=== PATIENT | male | born 1985 | race Caucasian/White ===

== ENCOUNTER 2020-03-07 04:57 | Emergency (ER) | payer SELFPAY ==
[2020-03-07 04:58] VITALS: BP 135/82; PULSE 73; RESP 20; TEMP 36.9; O2SAT 100
--- NOTE | 2020-03-07 05:12 | ED.BACK ---
HPI - Back Pain/Injury General Chief Complaint: Back Pain/Injury Stated Complaint: back pain Time Seen by Provider: 03/07/20 05:12 Source: patient and EMS Mode of arrival: EMS Limitations: no limitations History of Present Illness HPI Narrative: Patient is a 34-year-old male with a history of substance abuse, currently taking Suboxone, who presents for evaluation of back pain. Patient reportedly has had a week long history of worsening lower back pain, greatest on the right side, worse with movement, patient does state he can feel the pain at rest. No midline pain. No recent falls or injury. Patient states that he noticed the pain after lifting a heavy bag. Patient is homeless and carries most of his belongings around. Patient denies any numbness around his bottom, no difficulty with bowel or bladder function. No numbness in his lower extremities. Patient denies fever or chills. No nausea or vomiting. Patient states he was seen 3 days ago at [facility] and diagnosed with disc herniation. Related Data Allergies Allergy/AdvReac Type Severity Reaction Status Date / Time No Known Allergies Allergy Verified 03/07/20 05:03 Review of Systems Review of Systems: Narrative: CONSTITUTIONAL: Denies fever CARDIOVASCULAR: Denies chest pain RESPIRATORY: Denies cough or dyspnea. GASTROINTESTINAL: Denies abdominal pain SKIN: Denies rash MUSCULOSKELETAL: Reports right-sided lower back pain NEUROLOGIC: Denies headache PMFSH Past Medical History Medical History Hypertension Social History Social History (Updated 03/07/20 @ 05:15 by Anya Garcia MD) Substance use: current Substance use type: heroin and opiates Gender identity (if verbalized by the patient): Male Exam Narrative: Exam Narrative: GENERAL: Awake, alert, conversant, tearful HEAD: Normocephalic, atraumatic. EYES: PERRLA and EOMI. ENT: Nares clear, no rhinorrhea or epistaxis. Mucous membranes moist. NECK: Supple. CHEST: No respiratory distress, breathing even and non labored HEART: Regular rate, sinus rhythm ABDOMEN:Non distended, non tender EXTREMITIES: Normal range of motion. Edema, mild erythema, mild warmth of the right hand. Abscess of the right forearm. Fluctuant. Approximately 2 cm. Thorax: No cervical midline tenderness. No thoracic midline tenderness. No lumbar midline tenderness. Positive right-sided paraspinal lumbar tenderness which reproduces pain. Positive right SI joint tenderness. Positive straight leg raise test bilaterally. SKIN: Warm, dry NEURO:No focal deficits. Alert and oriented x3. EOMs intact without nystagmus. No facial droop/asymmetry noted bilaterally. Grimace intact. Intact sensation in face. Hearing intact bilaterally. Shoulder shrug intact. Strength 5/5 bilateral upper extremities. Strength 5/5 bilateral lower extremities. Reflexes 2+ patellar. Course Vital Signs Vital signs: Vital Signs Temperature 36.9 C 03/07/20 04:58 Pulse Rate 73 03/07/20 04:58 Respiratory Rate 03/07/20 04:58 Blood Pressure 135/82 03/07/20 04:58 Pulse Oximetry 100 03/07/20 04:58 Temperature 36.9 C 03/07/20 04:58 Pulse Rate 66 03/07/20 06:49 Respiratory Rate 03/07/20 06:49 Blood Pressure 131/74 03/07/20 06:49 Pulse Oximetry 100 03/07/20 06:49 Procedures Abscess I/D upper extremity: Date of Incision: 03/07/20 Time of Incision: 07:21 Side (if applicable): right Local Anesthetic: lidocaine 1% Amount of anesthesia used (mL): 3 Technique: incised with #11 blade Amount of fluid expressed (mL): 5 Irrigation: Yes Packing used?: none I&D Results: Pus Complications: pain MDM - Back Pain/Injury MDM Narrative Medical decision making narrative: Patient is a 34-year-old male who presented for evaluation of back pain. It does seem quite chronic in nature and is reproducible.
[2020-03-07] MEDS: SODIUM CHLORIDE 0.9% IV 1,000 ML 999 ML IV CONT (05:27)
[2020-03-07] MEDS: diazePAM 5 MG TABLET PO (05:27)
[2020-03-07 05:44] LABS: Basophils Percent Auto 0.3 % (0.2-1.2); Eosinophils Absolute Auto 0.4 K/mm3 (0-0.3); Eosinophils Percent Auto 3.6 % (0-4.4); Hematocrit 40.6 % (42.0-52.0); Hemoglobin 13.4 g/dL (14.0-18.0); Immature Granulocyte Absolute 0.06 K/mm3 (0.00-0.031); Immature Granulocyte Percent A 0.6 % (0-0.5); Lymphocytes Absolute Auto 2.47 K/mm3 (0.9-3.2); Lymphocytes Percent Auto 24.7 % (18.3-44.2); Mean Corpuscular Hemoglobin 30.1 pg (26-34); Mean Corpuscular Volume 91.2 fl (80-100); Mean Platelet Volume 10.1 fl (7.4-10.4); Monocytes Percent Auto 10.3 % (2.6-8.5); Neutrophils Absolute Auto 6.1 K/mm3 (1.3-6.7); Neutrophils Percent Auto 60.5 % (45.5-73.1); Platelet Count Result 259 k/mm3 (150-375); Red Blood Count 4.45 M/mm3 (4.6-6.20); Red Cell Distribution Width 13.2 % (11.5-14.5)
[2020-03-07 06:03] LABS: Anion Gap 9.6 mmol/L (7-16); Blood Urea Nitrogen 8 mg/dL (9-20); CRP 4.1 mg/dL (<1.0); Calcium 8.5 mg/dL (8.4-10.2); Carbon Dioxide 26 mmol/L (22-30); Chloride 101 mmol/L (98-107); Estimated Glomerular Filt Rate > 60; Glucose 118 mg/dL (75-110); Potassium 3.6 mmol/L (3.4-5.0); Sodium 133 mmol/L (137-145)
[2020-03-07 06:40] LABS: HIV 1/2 Ab P24 Ag Result Negative (Negative)
[2020-03-07 06:49] VITALS: BP 131/74; PULSE 66; RESP 20; O2SAT 100
[2020-03-07 07:36] LABS: Erythrocyte Sedimentation Rate 21 mm/hr (0-20)
[2020-03-07 07:43] VITALS: BP 119/72
== END 2020-03-07 07:45 | disposition home or self-care (01) ==
PROVIDERS: Emergency Provider Emergency Medicine
DX: S39.012A Strain of muscle, fascia and tendon of lower back, initial encounter (principal); L03.113 Cellulitis of right upper limb; L02.511 Cutaneous abscess of right hand; I10 Essential (primary) hypertension; X58.XXXA Exposure to other specified factors, initial encounter
CPT/HCPCS: 10060; 36415; 80048; 85025; 85652; 86140; 86703; 96361; 96365; 99284; A9270; G0432; J0131; J7030

== ENCOUNTER 2020-03-28 10:59 | Emergency (ER) | payer SELFPAY ==
[2020-03-28 11:05] VITALS: BP 143/90; PULSE 73; RESP 19; TEMP 36.6; O2SAT 100
--- NOTE | 2020-03-28 12:46 | ED.BACK ---
HPI - Back Pain/Injury General Chief Complaint: Back Pain/Injury <Aquiles Saucedo PA-C - Last Filed: 03/28/20 12:50> Stated Complaint: wound, back pain <Aquiles Saucedo PA-C - Last Filed: 03/28/20 12:50> Time Seen by Provider: 03/28/20 11:04 <Aquiles Saucedo PA-C - Last Filed: 03/28/20 12:50> Source: patient <Aquiles Saucedo PA-C - Last Filed: 03/28/20 12:50> Mode of arrival: ambulatory <Aquiles Saucedo PA-C - Last Filed: 03/28/20 12:50> Limitations: no limitations <Aquiles Saucedo PA-C - Last Filed: 03/28/20 12:50> History of Present Illness HPI Narrative: Patient is 34-year-old male who presents for wound check to the right forearm patient had multiple abscesses I&D then closed a [facility] 1 of the wounds opened was discharged today from the hospital with paperwork that suggest he left AMA. Patient does not know who his follow-up was with but does have papers with prescriptions included for antibiotics which she has not filled yet. Patient notes that the wound opened in the hospital and he decided to leave it open and wanted to have the wound reevaluated and closed. Patient has not facilitated follow-up with the specialist. Patient on arrival notes mild aching pain to the arm worse with activity and movement <Aquiles Saucedo PA-C - Last Filed: 03/28/20 12:50> Related Data Allergies/Adverse Reactions: Allergies Allergy/AdvReac Type Severity Reaction Status Date / Time No Known Allergies Allergy Verified 03/28/20 11:21 <Aquiles Saucedo PA-C - Last Filed: 03/28/20 12:50> Review of Systems Review of Systems: All systems reviewed & are unremarkable except as noted in HPI and below <Aquiles Saucedo PA-C - Last Filed: 03/28/20 12:50> [facility] Past Medical History Medical History: Medical History Hypertension <PÉREZ Gutierrez Last Filed: 03/28/20 12:50> Social History Social History: Social History Substance use: current Substance use type: heroin and opiates Gender identity (if verbalized by the patient): Male <Aquiles Saucedo PA-C - Last Filed: 03/28/20 12:50> Exam Narrative: Exam Narrative: GENERAL: Well-appearing, well-nourished, and in no acute distress. HEAD: Normocephalic, atraumatic. EYES: PERRLA and EOMI. ENT: Nares clear, no rhinorrhea or epistaxis. Mucous membranes moist. CHEST: Clear to auscultation. No respiratory distress. No wheezes rales or rhonchi HEART: Regular rate and rhythm. No murmur heard. Normal peripheral pulses. EXTREMITIES: Normal range of motion. No edema. SKIN: Warm, dry, no rash. Patient with wound measuring 3 cm to the right proximal forearm dorsal surface with half of the wound open with central opening no purulent drainage no erythema. Remainder of wound is closed NEURO: No focal deficits. Alert and oriented x3. Neurovascularly intact PSYCH: Normal mood and affect. <Aquiles Saucedo PA-C - Last Filed: 03/28/20 12:50> Course Course Emergency Course: Patient in the room in no distress aware of case findings treatment plan and diagnosis given a dose of IV antibiotic in the emergency department and given alternative surgeons to follow with but advised to follow with the surgeon that performed the surgery as this is best advised and to fill his medications noting that he will was also given discount prescription card and other resources. <Aquiles Saucedo PA-C - Last Filed: 03/28/20 12:50> Vital Signs Vital signs: Vital Signs Temperature 97.9 F 03/28/20 11:05 Pulse Rate 73 03/28/20 11:05 Respiratory Rate 19 03/28/20 11:05 Blood Pressure 143/90 H 03/28/20 11:05 Pulse Oximetry 100 03/28/20 11:05 Temperature 97.9 F 03/28/20 11:05 Pulse Rate 73 03/28/20 11:05 Respiratory Rate 19 03/28/20 11:05 Blood Pressure 143/90 H 03/28/20
[2020-03-28] MEDS: ceFAZolin 2 GM/D5W 50 ML 2 GM/50 ML BAG IVPB (12:53)
== END 2020-03-28 14:04 | disposition home or self-care (01) ==
PROVIDERS: Emergency Provider Emergency Medicine
DX: T81.89XA Other complications of procedures, not elsewhere classified, initial encounter (principal)
CPT/HCPCS: 96365; 99284; J0690

== ENCOUNTER 2022-03-17 04:04 | Emergency (ER) | payer OTHER, SELFPAY ==
[2022-03-17] VITALS (19 sets, daily range): BP systolic 101–132; BP diastolic 62–76; PULSE 64–115; RESP 15–20; TEMP 37.7–39.2; O2SAT 97–100
--- NOTE | ~2022-03-17 | CT_ITS ---
EXAMINATION: CT diagnostic chest w con DATE: 03/17/2022 10:44 INDICATION: IV drug use. Possible lung opacities, endocarditis TECHNIQUE: Computed tomography (CT) of the chest was performed with 75 CC Omnipaque 350 intravenous c ontrast. Automated exposure control and iterative reconstruction technique were employed. Exam dose: 144.51 mGy-cm total exam DLP. COMPARISON: 03/17/2022 portable AP chest FINDINGS: Right posterolateral 12 mm focal infiltrate. Approximately 3 cm rounded area of density and infiltrate which consists of a central 17 mm rounded m ass with minimal cavitation and prominent surrounding infiltrate. 3.6 mm cavitating nodule in the right upper lobe (image 44). Occasional additional small pulmonary nodular densities are noted. Septic emboli should be considered . There is minimal bilateral lower lobe dependent atelectasis. Normal heart size. No pericardial effusion. No pleural effusion. No thoracic aortic aneurysm. There is mild right hilar and mediastinal probable reactive lymphadenopathy. IMPRESSION: Scattered bilateral pulmonary opacities, the largest situated on the right upper lobe, w ith suggestion of minimal cavitation, surrounding infiltrate. Additional 3.6 mm small cavitating nodu le in the right upper lobe is noted. Consider multiple septic pulmonary emboli in this patient with h istory of intravenous drug abuse. Reviewed, dictated and finalized at [facility]. Reviewed, dictated and finalized at [facility]. IMPRESSION: Scattered bilateral pulmonary opacities, the largest situated on t he right upper lobe, with suggestion of minimal cavitation, surrounding infiltr ate. Additional 3.6 mm small cavitating nodule in the right upper lobe is noted . Consider multiple septic pulmonary emboli in this patient with history of int ravenous drug abuse.
--- NOTE | ~2022-03-17 | CT_ITS ---
EXAMINATION: CT abdomen pelvis w con DATE: 03/17/2022 08:36 INDICATION: Generalized abdominal pain, nausea, vomiting for 3 days. Fever. TECHNIQUE: Computed tomography (CT) of the abdomen and pelvis was performed with 100 CC Omnipaque 350 intravenous contrast. Automated exposure control and iterative reconstruction technique were employe d. Exam dose: 367.98 mGy-cm total exam DLP. COMPARISON: None. FINDINGS: Approximately 3.7 mm small pulmonary nodule or benign fissural node along the lateral aspec t of the greater fissure on the right (series 4 image 4). 4.5 mm probable benign fissural node along the greater fissure (image 5). 7.5 mm benign fissural node at the left greater fissure (image 2). Approximately 2.5 mm and 3 mm peripheral middle lobe opacities (images 1 and 4). Mild bilateral dependent lower lobe atelectasis. Normal heart size. No pericardial or pleural effusion. The liver, gallbladder, bile ducts, pancreas and pancreatic duct are unremarkable. The spleen measure s within upper limits of normal size, with 13 cm vertical dimension.. Normal morphology of the adrenal glands. No renal mass lesion or urinary tract calculus or hydroureteronephrosis is noted. The urinary bladder is unremarkable. Normal caliber of the abdominal aorta. No intraperitoneal or retroperitoneal or pelvic mass lesion or adenopathy or ascites. Normal appendix. No bowel obstruction or intraperitoneal free air. Small fat-containing umbilical hernia. Included skeletal structures are unremarkable. IMPRESSION: Spleen measures within upper limits of normal size at approximately 13 cm vertical dimens ion. No significant abnormality of the abdomen or pelvis Probable benign bilateral greater fissure fissural nodes, minimal lower lung atelectasis Reviewed, dictated and finalized at [facility]. Reviewed, dictated and finalized at [facility]. IMPRESSION: Spleen measures within upper limits of normal size at approximately 13 cm vertical dimension. No significant abnormality of the abdomen or pelvis Probable benign bilateral greater fissure fissural nodes, minimal lower lung at electasis
--- NOTE | ~2022-03-17 | XR_ITS ---
EXAMINATION: XR chest 1V portable Exam Date/Time: 03/17/2022 5:55 CDT HISTORY: Fever and cough Comparison: CT chest performed subsequently, already reported and available for comparison at the [facility] this radiograph was read. RESULT: Lines, tubes, and devices: None. Lungs and pleura: 2 cm cavitary nodule in the right upper lung, possibly with surrounding groundglas s opacity. Lungs otherwise clear. Cardiomediastinal silhouette: Stable. Other: No acute osseous or upper abdominal finding. IMPRESSION: Right upper lobe cavitary lesion. Additional pulmonary nodules detected by the subsequent CT are not visible radiographically. Reviewed, dictated and finalized at [facility].
--- NOTE | 2022-03-17 04:52 | ECG_ITS ---
Measurements Intervals [place] Rate: 86 P: 60 DC: 133 QRS: 48 QRSD: 90 T: 53 QT: 385 QTc: 461 Interpretive Statements SINUS RHYTHM NORMAL ELECTROCARDIOGRAM NO PREVIOUS ECG AVAILABLE FOR COMPARISON Electronically Signed On 03-17-2022 7:24:29 CDT by Sanchez Baldwin M.D.
[2022-03-17 05:42] LABS: Basophils Percent Auto 0.6 % (0.2-1.2); Hematocrit 43.2 % (42.0-52.0); Hemoglobin 14.1 g/dL (14.0-18.0); Immature Granulocyte Absolute 0.04 K/mm3 (0.00-0.031); Immature Granulocyte Percent A 0.6 % (0-0.5); Lymphocytes Absolute Auto 0.57 K/mm3 (0.9-3.2); Lymphocytes Percent Auto 8.1 % (18.3-44.2); Mean Corpuscular HGB Conc 32.6 g/dl (32-36); Mean Corpuscular Hemoglobin 27.4 pg (26-34); Mean Platelet Volume 10.8 fl (7.4-10.4); Monocytes Absolute Auto 0.4 K/mm3 (0.1-0.6); Monocytes Percent Auto 5.5 % (2.6-8.5); Neutrophils Percent Auto 85.2 % (45.5-73.1); Platelet Count Result 133 k/mm3 (150-375); Red Blood Count 5.14 M/mm3 (4.6-6.20); White Blood Count 7.1 K/mm3 (4.5-10.0)
[2022-03-17 05:51] LABS: INR 1.2; Prothrombin Time 14.8 Seconds (11.1-14.7)
[2022-03-17 05:52] LABS: Partial Thromboplastin Time 32.3 SECONDS (22.3-36.8)
[2022-03-17 06:49] LABS: Lactic Acid Reflex 2.4 mmol/L (0.7-2.0)
[2022-03-17 06:52] LABS: Alanine Aminotransferase 48 U/L (6-50); Albumin Level 4.4 g/dL (3.5-5.1); Alkaline Phosphatase 97 U/L (38-126); Anion Gap 14 mmol/L (8-16); Aspartate Amino Transferase 41 U/L (17-59); Bilirubin,Total 1.7 mg/dL (0.2-1.3); Blood Urea Nitrogen 12 mg/dL (9-20); Calcium 8.8 mg/dL (8.4-10.2); Carbon Dioxide 24 mmol/L (22-30); Chloride 92 mmol/L (98-107); Creatine Kinase 26 U/L (55-170); Estimated CRCL calculation 130 ml/min; Estimated Glomerular Filt Rate > 60; Glucose 115 mg/dL (65-110); Lipase 23 U/L (23-300); Potassium 3.9 mmol/L (3.4-5.0); Sodium 130 mmol/L (137-145)
[2022-03-17 07:04] LABS: CRP 23.3 mg/dL (<1.0)
[2022-03-17 07:12] LABS: SARS-CoV-2 RNA PCR Negative
--- NOTE | 2022-03-17 07:55 | ED.GENADULT ---
HPI - General Adult General Chief complaint: Fever <Crispin Myrick MD - Last Filed: 03/17/22 08:06> Stated complaint: fever, N/V, weakness <Crispin Myrick MD - Last Filed: 03/17/22 08:06> Time Seen by Provider: 03/17/22 04:52 <Crispin Myrick MD - Last Filed: 03/17/22 08:06> History of Present Illness HPI narrative: This is a 36-year-old male with a history of IV drug abuse presented the ED with fever and abdominal pain for 3 or 4 days. Patient describes the abdominal pain is a sharp diffuse pain that is 10/10 intensity and constant and slowly getting worse. He has never experienced pain like this before. There are no excess relieving factors. It is associated with nausea and vomiting. He is also complaining of a productive cough. Patient denies chest pain, diarrhea, urinary symptoms. He is vaccinated against COVID-19. Patient last used IV drugs 3 hours before his arrival. Patient has a history of mitral valve prolapse. <Crispin Myrick MD - Last Filed: 03/17/22 08:06> Related Data Allergies/adverse reactions: Allergies Allergy/AdvReac Type Severity Reaction Status Date / Time turkey Allergy Hives Verified 03/17/22 04:19 <Crispin Myrick MD - Last Filed: 03/17/22 08:06> Review of Systems Review of Systems: CONSTITUTIONAL: Denies night sweats. EYES: No eye pain ENT: Denies rhinorrhea CARDIOVASCULAR: Denies palpitations RESPIRATORY: Denies hemoptysis GASTROINTESTINAL: Denies hematemesis GENITOURINARY: Denies hematuria. SKIN: Denies rash MUSCULOSKELETAL: Denies myalgia. NEUROLOGIC: Denies weakness. PSYCHIATRIC: Denies delusions <Crispin Myrick MD - Last Filed: 03/17/22 08:06> PMF Past Medical History Medical History: Medical History Hypertension IV drug abuse Mitral valve prolapse <Crispin Myrick MD - Last Filed: 03/17/22 08:06> Social History Social History: Social History Substance use: current Substance use type: heroin and opiates Gender identity (if verbalized by the patient): Male <Crispin Myrick MD - Last Filed: 03/17/22 08:06> Exam Narrative: APPEARANCE: Patient is laying in bed. He appears uncomfortable. Head atraumatic. EYES: PERRLA/EOMI, NOSE: Normal no drainage NECK: Supple, Trachea midline RESPIRATORY: CTAB, No increased work of breathing. CARDIOVASCULAR: S1S2 appreciated no murmurs appreciated ABDOMINAL: Abdomen is soft although the patient is repeating diffuse tenderness. There is no guarding or rebound. exam is unremarkable MUSCULOSKELETAl: No obvious deformities NEURO: Alert. Moving 4/4 extremities SKIN:: Warm, dry. Normal color PSYCHIATRIC: Normal affect <Crispin Myrick MD - Last Filed: 03/17/22 08:06> Course Reevaluation(s) Reevaluation #1: Pt eval'ed by myself, now ambulating, still feels horrible. I did review the CXR and noted what appeared to be some opacities concerning to me for possible septic emboli; therefore obtained CT Chest which was highly suspicious given his history of IVDU. He is already on broad spectrum abx, d/w Dr Spence CT surgery at [facility], then the admitting hospitalist Dr. Lira. Plan explained to patient. <Meche Devlin MD - Last Filed: 03/17/22 14:32> Vital Signs Vital signs: Vital Signs Temperature 102.6 F H 03/17/22 04:15 Pulse Rate 115 H 03/17/22 04:15 Respiratory Rate 18 03/17/22 04:15 Blood Pressure 116/72 03/17/22 04:15 Pulse Oximetry 100 03/17/22 04:15 Oxygen Delivery Room Air 03/17/22 04:15 Temperature 99.9 F H 03/17/22 06:00 Pulse Rate 81 03/17/22 09:00 Respiratory Rate 16 03/17/22 09:00 Blood Pressure 101/69 03/17/22 09:00 Pulse Oximetry 100 03/17/22 09:01 Oxygen Delivery Room Air 03/17/22 04:15 <Crispin Myrick MD - Last Filed: 03/17/22 08:06> Vital Signs Temperature 102.6 F H
[2022-03-17 08:07] LABS: Appearance Urine Clear (Clear); Bilirubin Urine Negative (Negative); Blood Urine Negative (Negative); Color Urine Yellow (Yellow); Glucose Urine UA Negative (Negative); Ketones Urine Negative (Negative); Leukocyte Esterase Ur Trace LEU/UL (Negative); Nitrate Urine Negative (Negative); Protein Urine Negative (Negative); Urobilinogen Urine 0.2 mg/dL (<2.0)
[2022-03-17 08:12] LABS: Mucus Urine Rare /lpf; Squamous Epithelial Cell Urine Rare /hpf (Few)
[2022-03-17 08:13] LABS: Add Urine Microscopic? YES
[2022-03-17 08:18] LABS: HIV 1/2 Ab P24 Ag Result Negative (Negative)
[2022-03-17 08:42] LABS: Reflex Lactic Acid Yes or No Add Lactic
--- NOTE | 2022-03-17 09:27 | PC.NURSE ---
Patient received full 2.4L bolus of IV fluids
[2022-03-17 10:39] LABS: Lactic Acid 1.6 mmol/L (0.7-2.0)
[2022-03-17] MEDS: MORPHINE SULFATE (*CRX) 4 MG/ML INJ IV PUSH (13:46)
[2022-03-17] MEDS: fentaNYL CITRATE INJ (*CRX) 100 MCG/2 ML VIAL 50 MCG IV PUSH (15:40)
== END 2022-03-17 16:55 | disposition short-term general hospital (02) ==
PROVIDERS: Emergency Medicine; Emergency Provider Emergency Medicine
DX: R50.9 Fever, unspecified (principal); Z20.822 Contact with and (suspected) exposure to COVID-19; I34.1 Nonrheumatic mitral (valve) prolapse; I10 Essential (primary) hypertension
CPT/HCPCS: 36415; 71045; 71260; 74177; 80053; 81001; 82550; 83605; 83690; 85025; 85610; 85730; 86140; 86703; 87040; 87077; 87186; 93005; 96365; 96367; 96375; 99285; C9803; G0432; J0131; J0692; J2270; J3010; J3370; J7030; Q9967; U0003; U0005

== ENCOUNTER 2023-11-10 00:23 | Observation (INO) | payer OTHER, SELFPAY ==
[2023-11-10] VITALS (13 sets, daily range): BP systolic 118–151; BP diastolic 76–98; PULSE 60–83; RESP 13–20; TEMP 36.4–36.7; O2SAT 96–100; BMI 20.9
--- NOTE | ~2023-11-10 | CT_ITS ---
EXAMINATION: CTA brain carotid DATE: 11/10/2023 02:04 INDICATION: Dizziness. Slurred speech. TECHNIQUE: Computed tomographic angiography (CTA) of the head was performed with 100 mL Omnipaque-350 intravenous contrast. CTA of the neck was performed with intravenous contrast. Automated exposure co ntrol and iterative reconstruction technique were employed. The dose-length product was 1099.80 mGy-c m. Maximum intensity projection and volume rendered 3D-reconstructions were created by the technologi st on a separate workstation. COMPARISON: Head CT 11/10/2023 FINDINGS: HEAD CTA: There is no intracranial hemorrhage, acute infarction, or abnormal intracranial mass lesion . The ventricles are normal in size. There are old blowout fractures of the medial nice of the orbit s. There is mild mucosal thickening in the paranasal sinuses. The mastoid air cells are normal. Left vertebral artery is dominant. There is no significant stenosis of basilar artery or the posterior cer ebral arteries. There is no significant stenosis of the intracranial internal carotid arteries or ant erior or middle cerebral arteries. Anterior communicating artery is normal. The posterior communicati ng arteries are normal. There is no aneurysm. NECK CTA: There is mild emphysema. There are no pathologically enlarged lymph nodes. There is no sign ificant stenosis of the vertebral arteries. There is plaque in the proximal internal carotid arteries . There is 0% stenosis of the proximal right internal carotid artery relative to normal distal artery lumen diameter (NASCET criteria). There is 0% stenosis of the proximal left internal carotid artery relative to normal distal artery lumen diameter. Mediastinum and wires are noted. There is mild cervi iain spondylosis. IMPRESSION: 1. Normal brain. 2. No aneurysm or significant intracranial arterial stenosis. 3. 0% stenosis of the proximal internal carotid arteries relative to normal distal artery lumen diame ters (NASCET criteria). Reviewed, dictated and finalized at location E. IMPRESSION: 1. Normal brain. 2. No aneurysm or significant intracranial arterial stenosis. 3. 0% stenosis of the proximal internal carotid arteries relative to normal dis cain artery lumen diameters (NASCET criteria).
--- NOTE | ~2023-11-10 | XR_ITS ---
XR chest 1V portable DATE: 11/10/2023 02:09 INDICATION: Cerebrovascular accident TECHNIQUE: Portable upright AP views on 11/10/2023 at 0201 hours COMPARISON: 03/17/2022 portable AP chest 03/17/2022 CT chest FINDINGS: Status post sternotomy. Normal heart size. No hilar or mediastinal enlargement. No pulmonary infiltrate or consolidation, pleural effusion or pulmonary vascular congestion or pneumo thorax is detected. IMPRESSION: No active cardiopulmonary disease Reviewed, dictated and finalized at location A.
--- NOTE | ~2023-11-10 | CT_ITS ---
EXAMINATION: CT brain wo con DATE: 11/10/2023 01:02 INDICATION: Dizziness. Slurred speech. Right-sided diminished sensation. TECHNIQUE: Computed tomography (CT) of the head was performed without intravenous contrast. The mA wa s adjusted according to patient size. Iterative reconstruction technique was employed. Exam dose: 83 2.33 mGy-cm total exam DLP. COMPARISON: None FINDINGS: No intracranial mass lesion or hemorrhage or cerebrovascular accident is detected. No midli ne shift or mass effect effect. Normal ventricular size. Normal william-white matter differentiation. No subdural or epidural hematoma. The orbits are unremarkable. No skull fracture or bone destruction. The mastoid air cells and included paranasal sinuses are unrem arkable. IMPRESSION: No significant abnormality Reviewed, dictated and finalized at Location A. Reviewed, dictated and finalized at location A. IMPRESSION: No significant abnormality
[2023-11-10 00:43] LABS: Glucose Point of Care 84 mg/dl (65-105)
--- NOTE | 2023-11-10 00:48 | ED.DIZZY ---
HPI - Dizziness General Chief Complaint: Dizziness Stated Complaint: dizziness, bilateral hand/feet swelling Time Seen by Provider: 11/10/23 00:45 Source: patient Mode of arrival: ambulatory Limitations: no limitations History of Present Illness HPI Narrative: Patient presents with concern for stroke by triage given he is complaining of dizziness and right arm numbness with slurred speech. Last known well 10:30pm in regards to when the dizziness and left arm numbness started but he also states he has been feeling unwell for the past several days otherwise. Related Data Allergies Allergy/AdvReac Type Severity Reaction Status Date / Time turkey Allergy Hives Verified 11/10/23 01:07 [facility] Past Medical History Medical History (Updated 11/10/23 @ 08:36 by Kylie Whyte MD) History of endocarditis Hypertension IV drug abuse Mitral valve prolapse Surgical History Surgical History (Updated 11/10/23 @ 08:05 by Kylie Whyte MD) History of heart valve repair 2022 Social History Social History Substance use: current Substance use type: heroin and opiates Living arrangements: homeless Gender identity (if verbalized by the patient): Male Exam Narrative: GENERAL: well-nourished but appears unwell HEAD: Normocephalic, atraumatic. EYES: Non injected, non icteric. Horizontal EOMI. Peripheral leal intact. No gaze palsy. ENT: Nares clear, no rhinorrhea or epistaxis. NECK: Supple. CHEST: Clear to auscultation. No respiratory distress. HEART: Regular rate and rhythm. ABDOMEN: Soft, nondistended. EXTREMITIES: Normal range of motion. No edema. SKIN: Warm, dry. Multiple track boland across right forearm. NEURO:Alert but gets month and age incorrect ( states it is November and that he is 36 years old). no ataxia. Sensation is diminished in the right upper extremity compared to the left. No drift in any extremity x4. Does speak with slurred speech but does not exhibit dysarthria. No facial palsy. Facial movements intact and symmetric x3 (smile, closed eyes, furrowed brow). PSYCH: Normal mood and affect. Course Vital Signs Vital signs: Vital Signs Temperature 97.9 F 11/10/23 00:26 Pulse Rate 74 11/10/23 00:26 Respiratory Rate 16 11/10/23 00:26 Blood Pressure 151/89 H 11/10/23 00:26 Pulse Oximetry 99 11/10/23 00:26 Oxygen Delivery Room Air 11/10/23 00:26 Temperature 97.9 F 11/10/23 00:26 Pulse Rate 60 11/10/23 05:50 Respiratory Rate 20 11/10/23 05:50 Blood Pressure 134/87 11/10/23 05:50 Pulse Oximetry 100 11/10/23 05:50 Oxygen Delivery Room Air 11/10/23 00:26 MDM - Dizziness MDM Narrative Medical decision making narrative: This is a 38 year old male who presents to the emergency department with concern for possible stroke. Last known well is 10:30pm. The patient is protecting their airway which is patent. An IV is established by nursing staff and blood work sent to the lab for evaluation. An EKG will be performed. Accu-Chek was without marked hypoglycemia or hyperglycemia. NIHSS was evaluated per below. The patient was transported immediately to CT scan per stroke protocol for evaluation of acute intracranial bleed. NIHSS Level Of consciousness: 0 Month and age: 2 Follows commands: 0 Gaze palsy: 0 Visual leal: 0 Facial palsy: 0 Left arm motor drift: 0 Right arm motor drift: 0 Left leg motor drift: 0 Right leg motor drift: 0 Limb ataxia: 0 Sensation: 1 Aphasia: 1 Dysarthria: 0 Extinction: 0 Total: 4 CT per stroke protocol as below. Chart review performed which demonstrates: Hx of endocarditis. Patient has comorbidities that add complexity to management. Namely, He has a history of IV drug use complicated by endocarditis requiring heart valve repair last year. This IV drug use also predisposes him to aneurysm, brain abscesses, intraparenchymal hemorrhage
[2023-11-10 01:40] LABS: Basophils Percent Auto 0.5 % (0.2-1.2); Eosinophils Absolute Auto 0.2 K/mm3 (0-0.3); Eosinophils Percent Auto 3.1 % (0-4.4); Hematocrit 40.2 % (42.0-52.0); Hemoglobin 13.1 g/dL (14.0-18.0); Immature Granulocyte Absolute 0.01 K/mm3 (0.00-0.031); Immature Granulocyte Percent A 0.2 % (0-0.5); Lymphocytes Absolute Auto 2.38 K/mm3 (0.9-3.2); Lymphocytes Percent Auto 42.9 % (18.3-44.2); Mean Corpuscular HGB Conc 32.6 g/dl (32-36); Mean Corpuscular Hemoglobin 28.1 pg (26-34); Mean Corpuscular Volume 86.1 fl (80-100); Monocytes Absolute Auto 0.2 K/mm3 (0.1-0.6); Monocytes Percent Auto 3.8 % (2.6-8.5); Neutrophils Absolute Auto 2.8 K/mm3 (1.3-6.7); Neutrophils Percent Auto 49.5 % (45.5-73.1); Platelet Count Result 156 k/mm3 (150-375); Red Blood Count 4.67 M/mm3 (4.6-6.20); Red Cell Distribution Width 15.7 % (11.5-14.5); White Blood Count 5.6 K/mm3 (4.5-10.0)
[2023-11-10 01:52] LABS: Ethanol < 10 mg/dL (<10)
[2023-11-10 02:02] LABS: Estimated Glomerular Filt Rate > 60
[2023-11-10 02:08] LABS: Alanine Aminotransferase 14 U/L (6-50); Albumin Level 4.2 g/dL (3.5-5.1); Alkaline Phosphatase 107 U/L (38-126); Anion Gap 6 mmol/L (4-12); Aspartate Amino Transferase 24 U/L (17-59); Bilirubin,Total 1.1 mg/dL (0.2-1.3); Blood Urea Nitrogen 5 mg/dL (9-20); Calcium 9.1 mg/dL (8.4-10.2); Carbon Dioxide 27 mmol/L (22-30); Chloride 103 mmol/L (98-107); Estimated Glomerular Filt Rate > 60; Glucose 93 mg/dL (65-110); Potassium 3.8 mmol/L (3.4-5.0); Sodium 136 mmol/L (137-145)
[2023-11-10 02:20] LABS: Troponin I < 0.012 ng/mL (0.000-0.034)
[2023-11-10 05:04] LABS: Appearance Urine Clear (Clear); Bilirubin Urine Negative (Negative); Blood Urine Negative (Negative); Color Urine Yellow (Yellow); Glucose Urine UA Negative (Negative); Ketones Urine Negative (Negative); Leukocyte Esterase Ur Negative LEU/UL (Negative); Nitrate Urine Negative (Negative); Protein Urine Negative (Negative); pH Urine 6.5 (5.0-9.0)
[2023-11-10 05:05] LABS: Specific Grav Ur 1.038 (1.001-1.035)
[2023-11-10 05:21] LABS: Barbiturate Screen Urine Negative (Negative); Benzodiazepines Screen Urine Negative (Negative)
[2023-11-10 05:29] LABS: Cannabinoid Screen Urine Positive (Negative); Cocaine Screen Urine Negative (Negative); Methadone Screen Urine Negative (Negative); Opiate Screen Urine Negative (Negative); Phencyclidine Screen Urine Negative (Negative)
[2023-11-10 05:50] LABS: Amphetamine Screen Urine Positive (Negative)
[2023-11-10 06:42] LABS: Add Urine Microscopic? NO
[2023-11-10] MEDS: ACETAMINOPHEN 500 MG TABLET 1000 MG PO (08:32)
[2023-11-10] MEDS: ONDANSETRON INJ 4 MG/2 ML VIAL IV PUSH (08:33)
[2023-11-10 08:50] LABS: Influenza A QL RT-PCR Negative (Negative); Influenza B QL RT-PCR Negative (Negative); SARS-CoV-2 RNA PCR Negative (Negative)
[2023-11-10] MEDS: LORazepam (*CRX) 0.5 MG TABLET PO ×2 (09:58→13:07)
--- NOTE | 2023-11-10 10:26 | WPDNEURCNPN ---
Assessment and Plan Assessment and plan (1) Right arm numbness: Code(s): R20.0 - Anesthesia of skin Status: Acute (2) Dizziness: Code(s): R42 - Dizziness and giddiness Status: Acute (3) Amphetamine use: Code(s): F15.90 - Other stimulant use, unspecified, uncomplicated Status: Acute (4) History of endocarditis: Code(s): Z86.79 - Personal history of other diseases of the circulatory system Status: Acute Plan Sotero Ruby is a 38 year old male with a history of IV drug use, endocarditis, mitral valve prolapse presenting due to dizziness, right upper extremity numbness, and slurred speech. Concern for possible ischemic stroke. His risk factors for stroke include IV drug use (positive for amphetamines), and also history of endocarditis. - MRI brain with and without contrast - Surface echocardiogram with bubble study, EKG - Check LDL and HgbA1c - Will hold off on antiplatelet until MRI has been obtained Consult date: 11/10/23 Reason for consult: Concern for stroke HPI: Sotero Ruby is a 38 year old male with a history of IV drug use, endocarditis, mitral valve prolapse presenting due to dizziness, right upper extremity numbness, and slurred speech. Patient reports generally not feeling well for the past few days. His LKW was around 1030PM last night (11/08). Patient presented around midnight for complaints of dizziness, numbness of the right arm and slurred speech. In the ED his blood pressure ranged from 134-251 systolic. His NIH score was 4 due to him stating incorrect age/month, reduced sensation in the RUE, and slurred speech. CT head did not show any acute process. CTA brain/carotid done with preliminary read as negative for any large vessel occlusion. The ER physician called me around 0800 today for consult. She did not feel that patient was a candidate for tPA due to concerns for possible endocarditis and potential risk of hemorrhage especially with his underlying drug use. His UDS was positive for amphetamines and cannabinoids. Patient this morning reporting improvement of RUE numbness. He reports generalized weakness and overall not feeling well. Per beside RN, patient did not receive methadone doses for the past few days, which could be contributing to his symptoms. . Review of Systems Review of Systems: All systems reviewed & are unremarkable except as noted in HPI and below PMFSH Past Medical History Medical History History of endocarditis Hypertension IV drug abuse Mitral valve prolapse Surgical History Surgical History History of heart valve repair 2022 Social History Social History Smoking packs per day: 0.5 Smoking cigarettes per day: 10.0 Smoking status: Heavy tobacco smoker Second hand tobacco smoke exposure: Yes Alcohol intake: former Drinks per week: 0 Substance use: current Substance use type: marijuana, amphetamines, IV drugs and methamphetamine Other substance usage details: fentanyl 2x day 2-3 pills, shoots up fentanyl and smokes meth 1x week Do You Feel Safe in your Home?: Yes Lack of Transportation: YES Lack of Food: Often True Current Housing: I Do Not Have Housing Concerned About Future Housing: YES Difficulty Paying Gas/Electric Bills: No Difficulty Paying for Meds: YES Currently Unemployed: No Education: Grade School Difficulty w/ Childcare or Family Care: No Living arrangements: homeless Gender identity (if verbalized by the patient): Male Spiritual care concerns: Yes Meds Home Medications and Allergies Home Medications Medication Instructions Recorded Confirmed Type sulfamethoxazole 800 1 tablet PO Q12H 10 days #20 tabs 03/07/20 11/10/23 Rx mg-trimethoprim 160 mg tablet (Bactrim DS) methadone 40 mg soluble tablet 110 m
--- NOTE | 2023-11-10 10:33 | ECG_ITS ---
Measurements Intervals [place] Rate: 60 P: 56 [place]: 154 QRS: 66 QRSD: 90 T: 56 QT: 449 QTc: 451 Interpretive Statements SINUS RHYTHM BASELINE ARTIFACT- V1-V2 NORMAL ECG COMPARED TO ECG 03/17/2022 06:29:52 NO SIGNIFICANT CHANGES Electronically Signed On 11-10-2023 11:03:44 CDT by Moe Gonzalez D.O.
[2023-11-10] MEDS: cloNIDine HCL 0.1 MG TABLET PO (13:49)
[2023-11-10] MEDS: SODIUM CHLORIDE 0.9% IV 1,000 ML 100 ML IV CONT (15:03)
--- NOTE | 2023-11-10 15:21 | PM.IMHP ---
H&P: HPI History of Present Illness Date/Time: 11/10/23 14:15 Chief Complaint: Dizziness, right sided numbness, and slurred speech. Narrative: This is a 38-year-old male with history of IV drug use (fentanyl and amphetamines), endocarditis requiring heart valve repair, and mitral valve prolapse who presented to the emergency department for evaluation of dizziness, right arm numbness, and slurred speech. The patient provides the following history. He has not been feeling well for several days but was in his usual state of health when he went to bed at 22:30 last night. At around midnight he started to feel dizzy and noticed numbness and tingling in the right arm associated with slurred speech. He presented to the ED shortly thereafter at which time he had an NIH stroke scale of 4. Brain CT did not show any acute findings. ED physician did not feel he would be a candidate for tPA with concerns for possible endocarditis given his history and potential risk for hemorrhage given his underlying drug use. He is being admitted in this setting for further workup. Of note the patient reports that he takes methadone daily and he is trying to taper off of fentanyl. He reportedly takes 110 mg of methadone daily but that cannot be confirmed at this time. He is having some mild withdrawal symptoms, mainly cravings and sweats at this time. He denies fever, cold and flu symptoms, visual changes, facial droop, chest pain, palpitations, shortness of breath, and vomiting. Review of Systems Review of Systems: Twelve systems were reviewed and are negative except for as per HPI. FORMERLY [facility] Past Medical History Medical History History of endocarditis Hypertension IV drug abuse Mitral valve prolapse Surgical History Surgical History History of heart valve repair 2022 Family History Family History (Updated 11/10/23 @ 23:32 by Karla Issa PA-C) Other Family history non-contributory Social History Social History (Updated 11/10/23 @ 23:32 by Karla Issa PA-C) Smoking packs per day: 0.5 Smoking cigarettes per day: 10.0 Smoking status: Heavy tobacco smoker Second hand tobacco smoke exposure: Yes Alcohol intake: former Drinks per week: 0 Substance use: current Substance use type: marijuana, amphetamines, IV drugs and methamphetamine Other substance usage details: fentanyl 2x day 2-3 pills, shoots up fentanyl and smokes meth 1x week Do You Feel Safe in your Home?: Yes Lack of Transportation: YES Lack of Food: Often True Current Housing: I Do Not Have Housing Concerned About Future Housing: YES Difficulty Paying Gas/Electric Bills: No Difficulty Paying for Meds: YES Currently Unemployed: No Education: Grade School Difficulty w/ Childcare or Family Care: No Living arrangements: homeless Spiritual care concerns: Yes Meds Home Medications and Allergies Home Medications Medication Instructions Recorded Confirmed Type sulfamethoxazole 800 1 tablet PO Q12H 10 days #20 tabs 03/07/20 11/10/23 Rx mg-trimethoprim 160 mg tablet (Bactrim DS) methadone 40 mg soluble tablet 110 mg PO DAILY 11/10/23 11/10/23 History Allergies Allergy/AdvReac Type Severity Reaction Status Date / Time turkey Allergy Hives Verified 11/10/23 01:07 Vital Signs Vital Signs - 24 hr 11/10/23 00:26 11/10/23 01:05 11/10/23 02:46 Temperature 97.9 F Pulse Rate 74 69 64 Respiratory Rate 16 14 Blood Pressure 151/89 H 138/98 H Pulse Oximetry 99 100 Oxygen Delivery Room Air 11/10/23 03:32 11/10/23 05:50 11/10/23 07:30 Temperature 98.0 F Pulse Rate 63 60 78 Respiratory Rate 13 20 16 Blood Pressure 141/92 H 134/87 136/80 Pulse Oximetry 97 100 98 Oxygen Delivery 11/10/23 09:30 11/10/23 08:30 11/10/23 12:00 Temperature 97.8 F 97.6 F Pulse Rate 78 78 65 Respiratory R
[2023-11-10] MEDS: HYDROcodone/acetaminophen (*CRX) 10-325 MG TABLET 1 TAB PO (16:51)
[2023-11-10] MEDS: LORazepam (*CRX) 1 MG TABLET PO (18:55)
[2023-11-11] VITALS (8 sets, daily range): BP systolic 129–143; BP diastolic 48–89; PULSE 70–100; RESP 14–18; TEMP 36.8–37; O2SAT 97–99
--- NOTE | 2023-11-11 | ECHO_ITS ---
Patient Info Name: Sotero Ruby Age: 38 years : 1985 Gender: Male Ht: 71 in Wt: 150 lbs BSA: 1.84 m2 HR: 70 bpm BP: 129 / 48 mmHg Technical Quality: Fair Exam Date: 11/11/2023 2:44 PM Exam Location: Echo Lab Patient Status: Outpatient Admit Date: 11/10/2023 Staff Ordering Physician: Renetta Millard MD Etcher Hand: Ca Griffin RDCS Attending Provider: Chon Bojorquez MD Exam Type: CA echo doppler w bubble study Study Info Indications I39 - Endocarditis and heart valve disorders in diseases classified elsewhere Complete two-dimensional, color flow and Doppler transthoracic echocardiogram is performed with agitated saline. Contrast/Agitated Saline Contrast/Ag. Saline: Agitated Saline Amount: 12.00 ml IV Access Condition: patent with no signs of infiltration New IV Access: Right Summary 1. Left ventricular chamber dimension is normal. 2. Left ventricular systolic function is normal, estimated at 60-65%. 3. There is mild concentric increased left ventricular wall thickness. 4. The left ventricular diastolic function is grade I diastolic dysfunction. 5. E/e' 6 is not elevated. 6. Right atrial chamber dimension is mildly enlarged. 7. Suspected patent foramen ovale visualized by 2D and agitated saline imaging. 8. Agitated saline injection opacified right side cardiac chambers about about 5 bubbles shunt to left side cardiac chambers suggestive of patent foramen ovale. 9. The mitral valve has mild posterior prolapse. 10. There is mild mitral valve regurgitation. 11. Bioprosthetic tricuspid valve. 12. There is mild tricuspid valve regurgitation. 13. No pulmonary hypertension, estimated pulmonary arterial systolic pressure is 23 mmHg. Left Ventricle E/e' 6 is not elevated. Left ventricular chamber dimension is normal. Left ventricular systolic function is normal, estimated at 60-65%. There is mild concentric increased left ventricular wall thickness. The left ventricular diastolic function is grade I diastolic dysfunction. Right Ventricle Right ventricular chamber dimension is normal. Right ventricular systolic function is normal. Left Atria Left atrial chamber dimension is normal. Right Atria Right atrial chamber dimension is mildly enlarged. Atrial Septum Agitated saline injection opacified right side cardiac chambers about about 5 bubbles shunt to left side cardiac chambers suggestive of patent foramen ovale. Suspected patent foramen ovale visualized by 2D and agitated saline imaging. Aortic Valve The aortic valve is trileaflet. There is no aortic valve stenosis. There is no aortic valve regurgitation. Pulmonic Valve There is no pulmonic regurgitation. Mitral Valve The mitral valve has mild posterior prolapse. There is no mitral valve stenosis. There is mild mitral valve regurgitation. Tricuspid Valve Bioprosthetic tricuspid valve. There is no significant tricuspid valve stenosis. There is mild tricuspid valve regurgitation. No pulmonary hypertension, estimated pulmonary arterial systolic pressure is 23 mmHg. Pericardium/Pleural There is no pericardial effusion. Inferior Vena Cava Normal inferior vena cava with >50% collapse upon inspiration consistent with normal right atrial pressure, 5 mmHg. Aorta The aortic root size at the sinus of Valsalva is normal. Left Ventricular Outflow Tract Name Value Normal
[2023-11-11 00:21] LABS: Iron 70 ug/dL (49-181)
[2023-11-11 00:31] LABS: Percent Iron Saturation 23 % (20-50)
[2023-11-11 00:55] LABS: Thyroid Stimulating Hormone Reflex 0.713 uIU/mL (0.465-4.68)
[2023-11-11] MEDS: SODIUM CHLORIDE 0.9% IV 1,000 ML 100 ML IV CONT (01:10)
[2023-11-11] MEDS: SULFAMETHOXAZOLE/TRIMETHOPRIM 800/160 MG DS TABLET 1 TAB PO ×3 (01:14→19:48)
[2023-11-11] MEDS: ONDANSETRON INJ 4 MG/2 ML VIAL IV PUSH ×2 (01:20→16:38)
[2023-11-11] MEDS: LORazepam (*CRX) 0.5 MG TABLET PO ×4 (01:20→13:37)
[2023-11-11 01:31] LABS: Folic Acid 5.9 ng/mL (2.76->20)
[2023-11-11 05:32] LABS: Hematocrit 43.3 % (42.0-52.0); Hemoglobin 13.9 g/dL (14.0-18.0); Mean Corpuscular HGB Conc 32.1 g/dl (32-36); Mean Corpuscular Hemoglobin 28.3 pg (26-34); Platelet Count Result 153 k/mm3 (150-375); Red Blood Count 4.92 M/mm3 (4.6-6.20); Red Cell Distribution Width 15.6 % (11.5-14.5)
[2023-11-11 05:44] LABS: Anion Gap 3 mmol/L (4-12); Blood Urea Nitrogen 7 mg/dL (9-20); Calcium 8.4 mg/dL (8.4-10.2); Carbon Dioxide 25 mmol/L (22-30); Chloride 107 mmol/L (98-107); Estimated CRCL calculation 119 ml/min; Estimated Glomerular Filt Rate > 60; Glucose 95 mg/dL (65-110); Potassium 3.8 mmol/L (3.4-5.0); Sodium 135 mmol/L (137-145)
--- NOTE | 2023-11-11 13:40 | PM.IMPN ---
Progress Note: A&P Assessment and Plan (1) Right arm numbness: Code(s): R20.0 - Anesthesia of skin Status: Acute (2) Dizziness: Code(s): R42 - Dizziness and giddiness Status: Acute Assessment and Plan: Brain CT and CTA of the head and neck did not show any acute findings or significant stenosis CXR negative for acute process neurology consulted MRI ordered ECHO ordered (3) Polysubstance abuse: Code(s): F19.10 - Other psychoactive substance abuse, uncomplicated Status: Chronic Assessment and Plan: normally goes to [facility] in [place] per center, 60 mg was last dose given on 10/28 PRN Morphine ordered to prevent withdrawal PRN clonidine and lorazepam ordered to help with sweating and anxiety at this time Bactrim for abscesses in his hands related to injection in that will be continued (4) History of endocarditis: Code(s): Z86.79 - Personal history of other diseases of the circulatory system Status: Acute Subjective Date/time seen: 11/11/23 13:40 Interval history: Patient is in no distress this am, sleeping on arrival for exam but arousable. He reports feeling anxious. He says his methadone clinic is [facility] in [place], when nurse called to confirm dose she was told it was 60 mg but it has been since 10/18 that he had been and would require another evaluation. Neurology consulted, MRI and ECHO ordered. Will continue Bactrim for small wound on right hand, will order PRN morphine to prevent withdrawal if needed along with PRN Ativan. Review of Systems Review of Systems: All systems reviewed & are unremarkable except as noted in HPI and below Exam Narrative: General: Disheveled-appearing male in bed. HEENT: PERRLA, EOMI. Conjunctiva mildly injected. Neck: Supple. Respiratory: Lungs are clear to auscultation with slight expiratory wheezing. Cardiovascular: RRR with S1-S2. No murmur, rub, or gallop. Gastrointestinal: Abdomen is soft, nontender, and nondistended with positive bowel sounds. Skin: Warm and dry. Track boland on the upper and lower extremities. Wounds and possible abscesses on the hands from IV drug use. Extremities: No cyanosis, clubbing, or significant pitting edema. Peripheral pulses palpable. Neurological: Alert and oriented x4. Cranial nerves 2-12 are grossly intact. No facial asymmetry. Psychiatric: Cooperative with appropriate mood and affect. Objective Data Vital Signs Vital Signs: Vital Signs - 24 hr 11/10/23 14:00 11/10/23 16:00 11/10/23 19:56 Temperature 97.8 F 98.1 F Pulse Rate 76 80 81 Respiratory Rate 16 18 Blood Pressure 148/89 H 118/80 Pulse Oximetry 96 100 Oxygen Delivery 11/10/23 20:00 11/10/23 20:00 11/11/23 00:00 Temperature Pulse Rate 83 72 Respiratory Rate Blood Pressure Pulse Oximetry Oxygen Delivery Room Air 11/11/23 04:00 11/11/23 05:05 11/11/23 08:32 Temperature 98.2 F Pulse Rate 74 70 Respiratory Rate 18 Blood Pressure 129/48 L Pulse Oximetry 98 97 Oxygen Delivery Room Air 11/11/23 08:00 Temperature Pulse Rate Respiratory Rate Blood Pressure Pulse Oximetry Oxygen Delivery Room Air Intake/Output Intake/Output: Intake & Output 11/08/23 11/09/23 11/10/23 11/11/23 23:59 23:59 23:59 23:59 Intake Total 270 1500 Balance 270 1500 Meds/Results Medications: Active Medications Generic Name Dose Route Start Last Admin Trade Name Freq PRN Reason Stop Dose Admin Acetaminophen 650 mg 11/10/23 08:22 Acetaminophen 325 Mg Tablet PO Q4H PRN Mild Pain (1-3) or Fever Lorazepam 0.5 mg 11/10/23 08:22 11/11/23 13:37 Lorazepam (*Crx) 0.5 Mg Tablet PO 0.5 mg Q4HR PRN Administration Agitation Morphine Sulfate 2 mg 11/11/23 13:10 Morphine Sulfate (*Crx) 2 Mg/Ml Inj IV PUSH Q4H PRN Pain Rated 7-10 Ondansetron HCl 4 mg 11/10/23 08:22 11/11/23 01:20 Ondansetron Inj 4 Mg/2 Ml
[2023-11-11] MEDS: MORPHINE SULFATE (*CRX) 2 MG/ML INJ IV PUSH ×3 (14:30→22:45)
[2023-11-11] MEDS: NICOTINE (*PBKC) 14 MG PATCH 1 PATCH TRANSDERM (14:30)
--- NOTE | 2023-11-11 15:36 | WPDNEUROPN ---
Progress Note: A&P Assessment and Plan (1) Right arm numbness: Code(s): R20.0 - Anesthesia of skin Status: Acute (2) Dizziness: Code(s): R42 - Dizziness and giddiness Status: Acute (3) Polysubstance abuse: Code(s): F19.10 - Other psychoactive substance abuse, uncomplicated Status: Chronic (4) History of endocarditis: Code(s): Z86.79 - Personal history of other diseases of the circulatory system Status: Acute (5) Mitral valve prolapse: Code(s): I34.1 - Nonrheumatic mitral (valve) prolapse Status: Acute Assessment and Plan: History of mitral valve surgery in the past Plan Patient awaiting had a MRI of the brain and echocardiogram as ordered. Examination findings remain unchanged. Patient follow-up with results of these. Subjective Date/time seen: 11/11/23 15:36 Interval history: Patient continues to have numbness in her right upper limb. No other symptoms reported. He appears lethargic. Review of Systems Review of Systems: He complains of anxiety and he thinks that he is not getting in a methadone are medication for withdrawal. The history of polysubstance abuse. Exam Narrative: Follicles is alert oriented to self time place and person. No aphasia or dysarthria. Normal power in both upper and lower limbs with the exception of some mild loss of strength in the right upper limb compared to the left side. Rapid alternating movement also appears slightly decreased on the right compared to the left side. Deep tendon reflexes however did not show any asymmetry. Sensory is grossly intact. No involuntary movements seen. Objective Data Vital Signs Vital Signs: Vital Signs - 24 hr 11/10/23 16:00 11/10/23 19:56 11/10/23 20:00 Temperature 36.7 C Pulse Rate 80 81 Respiratory Rate 18 Blood Pressure 118/80 Pulse Oximetry 100 Oxygen Delivery Room Air 11/10/23 20:00 11/11/23 00:00 11/11/23 04:00 Temperature Pulse Rate 83 72 74 Respiratory Rate Blood Pressure Pulse Oximetry Oxygen Delivery 11/11/23 05:05 11/11/23 08:32 11/11/23 08:00 Temperature 36.8 C Pulse Rate 70 Respiratory Rate 18 Blood Pressure 129/48 L Pulse Oximetry 98 97 Oxygen Delivery Room Air Room Air 11/11/23 14:00 Temperature 37.0 C Pulse Rate 85 Respiratory Rate 14 Blood Pressure 133/81 Pulse Oximetry 99 Oxygen Delivery Intake/Output Intake/Output: Intake & Output 11/08/23 11/09/23 11/10/23 11/11/23 23:59 23:59 23:59 23:59 Intake Total 270 1500 Balance 270 1500 Meds/Results Medications: Active Medications Generic Name Dose Route Start Last Admin Trade Name Freq PRN Reason Stop Dose Admin Acetaminophen 650 mg 11/10/23 08:22 Acetaminophen 325 Mg Tablet PO Q4H PRN Mild Pain (1-3) or Fever Lorazepam 0.5 mg 11/10/23 08:22 11/11/23 13:37 Lorazepam (*Crx) 0.5 Mg Tablet PO 0.5 mg Q4HR PRN Administration Agitation Morphine Sulfate 2 mg 11/11/23 13:10 11/11/23 14:30 Morphine Sulfate (*Crx) 2 Mg/Ml Inj IV PUSH 2 mg Q4H PRN Administration Pain Rated 7-10 Nicotine 1 patch 11/11/23 14:20 11/11/23 14:30 Nicotine (*Pbkc) 14 Mg Patch TRANSDERM 1 patch DAILY RONNY Administration Ondansetron HCl 4 mg 11/10/23 08:22 11/11/23 01:20 Ondansetron Inj 4 Mg/2 Ml Vial IV PUSH 4 mg Q4H PRN Administration Nausea Perflutren Lipid Microsphere 0 ml 11/10/23 23:39 Perflutren Lipid Microspheres 1.5 Ml Vial Diluted To 10 Ml Total Volume IV PUSH 11/13/23 23:40 ONCE PRN adequate visualization Protocol Trimethoprim/Sulfamethoxazole 1 tab 11/10/23 23:40 11/11/23 09:37 Sulfamethoxazole/Trimethoprim 800/160 Mg Ds Tablet PO 1 tab Q12HR RONNY Administration Radiology Results: ITS Impressions Head CT 11/10/23 08:30 IMPRESSION: No significant abnormality Chest X-Ray 11/10/23 10:59 IMPRESSION: No act
[2023-11-11] MEDS: LORazepam INJ (*CRX) 2 MG/ML VIAL IV PUSH ×3 (16:38→23:49)
--- NOTE | 2023-11-11 21:37 | PC.NURSE ---
7:50 PM: pt requesting that a friend come and visit, explained to pt that security will have to search visitor d/t pt history of IVDU, everyone in compliance. 7:55 PM: visitor arrival with security and charge nurse EVGENY Greenfield at patients door. 7:56 PM: visitor and pt attempt to go into bathroom together without staff present, explained that we are not allowed to let you in there alone with the door closed d/t pt safety and history of IVDU. 8:00 PM: explained to pt and family that visiting hours are over and the visitor will have to leave at this moment, everyone in compliance. 8:02 PM: pt frantically looking through bedside table and all the tables in his room as if the visitor dropped something for him to crab picker. Nursing staff and security systems sales representative redirected patient and removed hospital belongings from room. 8:05 PM: pt became increasingly agitated and began going through personal belongings and putting on clothes, explained to pt that he is more than welcome to leave AMA, but if he chooses not to that he needs to be in a hospital gown and sit back down in bed. pt continued to be increasingly frustrated and request more morphine to be given and that this hospital is doing nothing for him. Multiple RNs explained why more morphine can not be given at this time. 8:20 PM: pt agreed to sit back in bed with personal shirt on and allowed us to put the secured entrance monitor back on him.
[2023-11-12] VITALS: PULSE 81
[2023-11-12] MEDS: LORazepam (*CRX) 0.5 MG TABLET PO ×2 (00:34→14:18)
[2023-11-12] MEDS: LORazepam INJ (*CRX) 2 MG/ML VIAL IV PUSH ×2 (01:43→12:33)
[2023-11-12] MEDS: MORPHINE SULFATE (*CRX) 2 MG/ML INJ IV PUSH (03:10)
[2023-11-12 04:00] VITALS: PULSE 78
[2023-11-12] MEDS: cloNIDine HCL 0.1 MG TABLET PO ×2 (04:00→08:14)
[2023-11-12] MEDS: methADONE HCL (*CRX) 10 MG TABLET 20 MG PO (04:01)
[2023-11-12 04:13] VITALS: BP 129/77; PULSE 82; RESP 18; TEMP 36.9; O2SAT 97
--- NOTE | 2023-11-12 05:39 | PM.EVENT ---
Event Note Event Note Event Note: Nursing staff called me because they were worried the patient was going through increasing symptoms of withdrawal. Patient was becoming more more agitated and patient was being graded by CIWA scores which were ranging between 15 and 18. I calculated the patient's cows score which was above 14. The patient has not had his methadone since the . The patient had started using drugs again. Security had to be called as the patient was becoming violent. According to up-to-date in the acute setting withdrawal methadone can be given 20 mg p.o. with possible repeat dose of another 20 not to exceed 40 in the 1st 24 hour interval. Also adjunctive therapies with clonidine. The patient received both clonidine and methadone and at which time he fell asleep. I went to re-evaluate the patient the patient was lying in bed asleep. Blood pressure was stable heart rate was in the 70. Will continue clonidine 0.1 mg q.4 hours as long as systolic blood pressures greater than 120. For maximum dose of 0.8 mg in 24 hours. 35 minute spent in critical care activities Due to a high probability of clinically significant, life threatening deterioration, the patient required my highest level of preparedness to intervene emergently and I personally spent this critical care time directly and personally managing the patient. This critical care time included obtaining a history; examining the patient; pulse oximetry; ordering and review of studies; arranging urgent treatment with development of a management plan; evaluation of patient's response to treatment; frequent reassessment; and discussions with other providers. It was exclusive of separately billable procedures and treating other patients and teaching time. Please see Assessment and Plan section and the rest of the note for further information on patient assessment and treatment.
[2023-11-12 05:49] LABS: Basophils Percent Auto 0.2 % (0.2-1.2); Eosinophils Absolute Auto 0.1 K/mm3 (0-0.3); Eosinophils Percent Auto 2.5 % (0-4.4); Hematocrit 42.2 % (42.0-52.0); Hemoglobin 13.7 g/dL (14.0-18.0); Immature Granulocyte Absolute 0.01 K/mm3 (0.00-0.031); Immature Granulocyte Percent A 0.2 % (0-0.5); Lymphocytes Absolute Auto 1.76 K/mm3 (0.9-3.2); Lymphocytes Percent Auto 31.3 % (18.3-44.2); Mean Corpuscular HGB Conc 32.5 g/dl (32-36); Mean Corpuscular Hemoglobin 28.2 pg (26-34); Mean Corpuscular Volume 86.8 fl (80-100); Mean Platelet Volume 10.3 fl (7.4-10.4); Monocytes Absolute Auto 0.3 K/mm3 (0.1-0.6); Monocytes Percent Auto 4.8 % (2.6-8.5); Neutrophils Absolute Auto 3.4 K/mm3 (1.3-6.7); Platelet Count Result 141 k/mm3 (150-375); Red Blood Count 4.86 M/mm3 (4.6-6.20); Red Cell Distribution Width 15.4 % (11.5-14.5); White Blood Count 5.6 K/mm3 (4.5-10.0)
[2023-11-12 06:03] LABS: Anion Gap 6 mmol/L (4-12); Blood Urea Nitrogen 5 mg/dL (9-20); Calcium 8.9 mg/dL (8.4-10.2); Carbon Dioxide 25 mmol/L (22-30); Chloride 106 mmol/L (98-107); Estimated CRCL calculation 105 ml/min; Estimated Glomerular Filt Rate > 60; Glucose 117 mg/dL (65-110); Potassium 3.4 mmol/L (3.4-5.0); Sodium 137 mmol/L (137-145)
--- NOTE | 2023-11-12 06:13 | PC.NURSE ---
around 0320 pt came running down [address]obb towards nurses station after setting off bed alarm screaming that he wanted the doctor . Security called for safety and monitoring of pt, he walked back to bed.
--- NOTE | 2023-11-12 06:26 | PC.NURSE ---
0400 COWS score completed per MD request (Dr. Cui) placed in paper chart. Score - 27
[2023-11-12 06:35] VITALS: BP 120/84; PULSE 92
[2023-11-12] MEDS: SULFAMETHOXAZOLE/TRIMETHOPRIM 800/160 MG DS TABLET 1 TAB PO (08:14)
[2023-11-12] MEDS: NICOTINE (*PBKC) 14 MG PATCH 1 PATCH TRANSDERM (08:14)
--- NOTE | 2023-11-12 14:20 | PC.NURSE ---
pt agitated after visit with pastoral care, he is yelling out and pacing in room RN Sonia at lunch, PO ativan administered per PRN orders
--- NOTE | 2023-11-12 14:49 | PM.DS ---
DS: Admitting Diagnosis Discharge Date 11/12/23 Admitting Diagnosis right arm numbness DS: Discharge Diagnosis Discharge Diagnosis (1) Right arm numbness: Code(s): R20.0 - Anesthesia of skin Status: Resolved Assessment and Plan: likely related to withdrawal from methadone and drug use. (2) Dizziness: Code(s): R42 - Dizziness and giddiness Status: Acute Assessment and Plan: Brain CT and CTA of the head and neck did not show any acute findings or significant stenosis CXR negative for acute process neurology consulted MRI unable to be done due to previous MVP procedure with records ECHO unrevealing, showed PFO Discussed with Cardiology DENTAL NURSE and can refer for outpatient follow up (3) Polysubstance abuse: Code(s): F19.10 - Other psychoactive substance abuse, uncomplicated Status: Chronic Assessment and Plan: normally goes to [facility] per center, 60 mg was last dose given on 10/28 Bactrim for abscesses in his hands related to injection in that will be continued (4) History of endocarditis: Code(s): Z86.79 - Personal history of other diseases of the circulatory system Status: Acute DS: Summary Hospital Course Hospital Course: Patient is a 38-year-old male with history of IV drug use (fentanyl and amphetamines), endocarditis requiring heart valve repair, and mitral valve prolapse admitted for evaluation of dizziness, right arm numbness, and slurred speech. Brain CT did not show any acute findings. ED physician did not feel he would be a candidate for tPA with concerns for possible endocarditis given his history and potential risk for hemorrhage given his underlying drug use. Of note the patient reports that he takes methadone daily and he is trying to taper off of fentanyl. He reportedly takes 110 mg of methadone daily but [facility] reports he has not been to the clinic since 10/28 and his more recent dose was 60 mg. He denies fever, cold and flu symptoms, visual changes, facial droop, chest pain, palpitations, shortness of breath, and vomiting. Withdrawal symptoms managed overnight. Patient feeling better this morning and ready for d/c. Discussed PFO findings with patient and cardiology who can follow up outpatient for further evaluation. Continue Bactrim for hand wound. Does not appear infection to be spreading or worsening. No other sites of infection noted. Care coordination provided resources. Status at Discharge Functional status at discharge: independent ambulation Overall status at discharge: patient is back to baseline Time Spent with Patient Time attestation: Total time spent providing and/or coordinating discharge services: Exam Narrative: General: Disheveled-appearing male in bed. HEENT: PERRLA, EOMI. Conjunctiva mildly injected. Neck: Supple. Respiratory: Lungs are clear to auscultation with slight expiratory wheezing. Cardiovascular: RRR with S1-S2. No murmur, rub, or gallop. Gastrointestinal: Abdomen is soft, nontender, and nondistended with positive bowel sounds. Skin: Warm and dry. Track boland on the upper and lower extremities. Wound on right hand bandage, clean dry and intact Extremities: No cyanosis, clubbing, or significant pitting edema. Peripheral pulses palpable. Neurological: Alert and oriented x4. Cranial nerves 2-12 are grossly intact. No facial asymmetry. Psychiatric: Cooperative with appropriate mood and affect. DS: Data Data Completed and Pending Labs on day of discharge: Labs from last 24 hours 11/12/23 05:21 WBC 5.6 RBC 4.86 Hgb 13.7 L Hct 42.2 MCV 86.8 MCH 28.2 MCHC 32.5 RDW 15.4 H Plt Count 141 L MPV 10.3 Immature Gran % (Auto) 0.2 Neut % (Auto) 61.0 Lymph % (Auto) 31.3 [place] % (Auto) 4.8 Eos % (Auto) 2.5 Baso % (Auto) 0.2 Lymph # (Auto) 1.76 [place] # (Auto) 0.3 Eos # (Auto) 0.1 Baso # (Auto) 0.0 Abs Immat Gran (auto) 0.01 Absolute Neuts (auto)
--- NOTE | 2023-11-21 14:31 | PC.NURSE ---
Blood cx are negative
== END 2023-11-12 14:47 | disposition home or self-care (01) ==
LOC: ANHED 08:36 → ANH2MED 12:37
PROVIDERS: Nurse Practitioner; Physician Assistant; Admitting Provider Internal Medicine; Emergency Provider Student in an Organized Health Care Education/Training Program; Visit Provider Hospitalist
DX: R20.0 Anesthesia of skin (principal); R42 Dizziness and giddiness; L02.511 Cutaneous abscess of right hand; F15.90 Other stimulant use, unspecified, uncomplicated; D64.9 Anemia, unspecified; I10 Essential (primary) hypertension; I08.1 Rheumatic disorders of both mitral and tricuspid valves; Z95.2 Presence of prosthetic heart valve; R29.704 NIHSS score 4; F11.10 Opioid abuse, uncomplicated; F19.10 Other psychoactive substance abuse, uncomplicated; F12.90 Cannabis use, unspecified, uncomplicated; Z20.822 Contact with and (suspected) exposure to COVID-19; Z86.79 Personal history of other diseases of the circulatory system; F17.210 Nicotine dependence, cigarettes, uncomplicated; Z79.899 Other long term (current) drug therapy
CPT/HCPCS: 36415; 70450; 70496; 70498; 71045; 80048; 80053; 80307; 81003; 82607; 82728; 82746; 82948; 83540; 83550; 83735; 84443; 84484; 85025; 85027; 87040; 87636; 93005; 93306; 96361; 96374; 96375; 96376; 99285; A9270; G0378; G0379; J2060; J2270; J2405; J7030; Q9967

== ENCOUNTER 2024-01-08 22:26 | Observation (INO) | payer OTHER, SELFPAY ==
[2024-01-08 22:27] VITALS: BP 148/94; PULSE 94; RESP 20; TEMP 36.9; O2SAT 100
--- NOTE | 2024-01-08 23:15 | ED.SKABFB ---
HPI - Skin/Abscess/Foreign Bdy General Chief complaint: Skin/Abscess/Foreign Body Stated complaint: bug bite to right leg Time Seen by Provider: 01/08/24 22:38 History of Present Illness HPI narrative: 38-year-old male with history of polysubstance abuse, endocarditis, mitral valve prolapse with valve replacement presents to the emergency department for multiple wounds throughout his upper and lower extremities for multiple weeks. He reports subjective fevers and nausea, denies emesis. Denies chest pain or shortness of breath, nausea or vomiting. States he uses ?pain medications? and methamphetamines, however has not used any drugs in 3 days per the patient. Also states he drinks alcohol every once in a while that is not drinking anything today. He is requesting medication for anxiety. Tdap is not up to date. Patient states he does not have a permanent residence and couch hops between friends' houses. Related Data Allergies Allergy/AdvReac Type Severity Reaction Status Date / Time turkey Allergy Hives Verified 11/10/23 01:07 Review of Systems Review of Systems: CONSTITUTIONAL: See HPI EYES: Denies visual changes, redness, or discharge. ENT: Denies rhinorrhea, congestion, sore throat, or otalgia. CARDIOVASCULAR: Denies chest pain, palpitations, or edema. RESPIRATORY: Denies cough or dyspnea. GASTROINTESTINAL: Denies abdominal pain, nausea, vomiting, or diarrhea. GENITOURINARY: Denies dysuria or hematuria. SKIN: See HPI MUSCULOSKELETAL: Denies back pain, joint pain, or myalgia. NEUROLOGIC: Denies headache, numbness, or weakness. PSYCHIATRIC: Denies anxiety or depression. [facility] Past Medical History Medical History History of endocarditis Hypertension IV drug abuse Mitral valve prolapse Surgical History Surgical History History of heart valve repair 2022 Family History Family History Other Family history non-contributory Social History Social History Smoking packs per day: 0.5 Smoking cigarettes per day: 10.0 Smoking status: Heavy tobacco smoker Second hand tobacco smoke exposure: Yes Alcohol intake: former Drinks per week: 0 Substance use: current Substance use type: marijuana, amphetamines, IV drugs and methamphetamine Other substance usage details: fentanyl 2x day 2-3 pills, shoots up fentanyl and smokes meth 1x week Do You Feel Safe in your Home?: Yes Lack of Transportation: YES Lack of Food: Often True Current Housing: I Do Not Have Housing Concerned About Future Housing: YES Difficulty Paying Gas/Electric Bills: No Difficulty Paying for Meds: YES Currently Unemployed: No Education: Grade School Difficulty w/ Childcare or Family Care: No Living arrangements: homeless Spiritual care concerns: Yes Exam Narrative: GENERAL: Well-appearing, well-nourished, and in no acute distress. HEAD: Normocephalic, atraumatic. NECK: Supple. CHEST: Clear to auscultation. No respiratory distress. HEART: Regular rate and rhythm. No murmur heard. Normal peripheral pulses. ABDOMEN: Soft, nontender, nondistended, normal active bowel sounds. EXTREMITIES: Normal range of motion. No edema. SKIN: Multiple wounds throughout upper and lower extremities in various stages, multiple with overlying scabs. There are areas of erythema, warmth, tender nodules to the medial aspect of the proximal left tib-fib without overlying wounds. There is a small fluctuant wound to the dorsum of the left hand with surrounding warmth and erythema, no active drainage. NEURO: No focal deficits. Alert and oriented x3 Course Vital Signs Vital signs: Vital Signs Temperature 98.5 F 01/08/24 22:27 Pulse Rate 94 01/08/24 22:27 Respiratory Rate 20 01/08/24 22:27
[2024-01-08] MEDS: TETANUS,DIPHTHERIA,AC PERTUSSIS ADULT (0.5 ML) BOOSTRIX IM (23:31)
[2024-01-08 23:37] LABS: Basophils Percent Auto 0.4 % (0.2-1.2); Eosinophils Absolute Auto 0.2 K/mm3 (0-0.3); Eosinophils Percent Auto 3.2 % (0-4.4); Hematocrit 38.2 % (42.0-52.0); Hemoglobin 12.5 g/dL (14.0-18.0); Immature Granulocyte Absolute 0.01 K/mm3 (0.00-0.031); Immature Granulocyte Percent A 0.2 % (0-0.5); Lymphocytes Absolute Auto 2.23 K/mm3 (0.9-3.2); Lymphocytes Percent Auto 39.7 % (18.3-44.2); Mean Corpuscular HGB Conc 32.7 g/dl (32-36); Mean Corpuscular Hemoglobin 28.3 pg (26-34); Mean Corpuscular Volume 86.4 fl (80-100); Mean Platelet Volume 10.1 fl (7.4-10.4); Monocytes Absolute Auto 0.3 K/mm3 (0.1-0.6); Neutrophils Absolute Auto 2.8 K/mm3 (1.3-6.7); Neutrophils Percent Auto 50.5 % (45.5-73.1); Platelet Count Result 152 k/mm3 (150-375); Red Blood Count 4.42 M/mm3 (4.6-6.20); Red Cell Distribution Width 14.6 % (11.5-14.5); White Blood Count 5.6 K/mm3 (4.5-10.0)
[2024-01-08 23:48] LABS: Ethanol 20 mg/dL (<10)
[2024-01-08 23:51] LABS: Lactic Acid Reflex 1.6 mmol/L (0.7-2.0)
[2024-01-08 23:52] LABS: Alanine Aminotransferase 15 U/L (6-50); Alkaline Phosphatase 98 U/L (38-126); Anion Gap 7 mmol/L (4-12); Aspartate Amino Transferase 24 U/L (17-59); Bilirubin,Total 1.6 mg/dL (0.2-1.3); Blood Urea Nitrogen 12 mg/dL (9-20); CRP 2.2 mg/dL (<1.0); Calcium 8.9 mg/dL (8.4-10.2); Carbon Dioxide 23 mmol/L (22-30); Chloride 109 mmol/L (98-107); Estimated CRCL calculation 131 ml/min; Estimated Glomerular Filt Rate > 60; Glucose 85 mg/dL (65-110); Potassium 3.9 mmol/L (3.4-5.0); Sodium 139 mmol/L (137-145)
[2024-01-09 00:07] LABS: Barbiturate Screen Urine Negative (Negative); Benzodiazepines Screen Urine Negative (Negative)
[2024-01-09 00:10] LABS: Cannabinoid Screen Urine Positive (Negative); Cocaine Screen Urine Negative (Negative); Methadone Screen Urine Negative (Negative); Opiate Screen Urine Positive (Negative); Phencyclidine Screen Urine Negative (Negative)
[2024-01-09] MEDS: LORazepam INJ (*CRX) 2 MG/ML VIAL 1 MG IV PUSH (00:17)
--- NOTE | 2024-01-09 00:19 | PC.NURSE ---
Ativan administered IM right gluteus with PA-C at bedside with verbal order.
[2024-01-09 00:27] LABS: Amphetamine Screen Urine Positive (Negative)
[2024-01-09 00:42] LABS: Erythrocyte Sedimentation Rate 11 mm/hr (0-20)
[2024-01-09 01:23] VITALS: BP 142/88; PULSE 99; RESP 15; O2SAT 97
[2024-01-09 02:28] VITALS: BP 127/84; PULSE 77; RESP 18; TEMP 37; O2SAT 99; BMI 21.7
--- NOTE | 2024-01-09 02:28 | ADMGEN ---
This patient, Sotero Ruby, was admitted to 3 Med Surg Room 317-01. Patient/family oriented to hospital policies and general routines including ID bracelet, bed and alarms, visiting hours, pain management, procedures, bathroom and other care routines, personal items, smoking policy, room service/diet, and visiting hours. Information on how to activate the Rapid Response Team has been discussed. Patient/Family are encouraged to report perceived risks to care and to ask questions if they do not understand what they are told or what they should do.
--- NOTE | 2024-01-09 02:32 | PM.IMHP ---
H&P: HPI History of Present Illness Date/Time: 01/09/24 02:32 Chief Complaint: hand swelling Narrative: This is a 38-year-old male with past medical history significant for polysubstance abuse, IV drug use, tobacco dependence, endocarditis. Patient presents to the emergency room due to left hand dorsum swelling, tenderness, wound, chills. Patient uses fentanyl and amphetamines. denies any nausea, vomiting, diarrhea, abdominal pain. States that he has a lot of anxiety that has been having a lot going on . preliminary workup was significant for patient tested positive for opiates, amphetamines and cannabis. patient has been admitted for further evaluation management and treatment. Review of Systems Review of Systems: hand swelling, ivdu, chills Constitutional: Constitutional: Reports chills Eyes: Eyes: Denies change in vision ENT: Denies dysphagia and Denies odynophagia Cardiovascular: Cardiovascular: Denies chest pain at rest Respiratory: Respiratory: Denies cough and Denies excessive phlegm production Gastrointestinal: Gastrointestinal: Denies abdominal pain, Denies diarrhea, Denies nausea and Denies vomiting Genitourinary: Genitourinary: Denies dysuria Musculoskeletal: Musculoskeletal: Reports myalgias Integumentary/Breasts: Skin/Breast: Reports skin pain, Reports skin swelling and Reports sores Neurologic: Denies focal weakness and Denies Sensory deficit (Neuro) Psychiatric: Psychiatric: Reports no additional psychiatric complaints and Reports as per HPI Endocrine: Endocrine: Denies cold intolerance, Denies heat intolerance, Denies polyphagia, Denies polydipsia, Denies polyuria and Denies palpitations Hematologic/Lymphatic: Hematologic/Lymphatic: Reports no additional hematologic/lymphatic complaints and Reports as per HPI Allergic/Immunologic: Allergic/Immunologic: Reports no additional allergic/immunologic complaints and Reports as per HPI [facility] Past Medical History Medical History History of endocarditis Hypertension IV drug abuse Mitral valve prolapse Surgical History Surgical History History of heart valve repair 2022 Family History Family History Other Family history non-contributory Social History Social History Smoking packs per day: 0.5 Smoking cigarettes per day: 10.0 Smoking status: Current every day smoker Tobacco type: cigarettes Second hand tobacco smoke exposure: Yes Alcohol intake: current Drinks per week: 12 Substance use: current Substance use type: marijuana, amphetamines and IV drugs Other substance usage details: fentanyl 2x day 2-3 pills, shoots up fentanyl and smokes meth 1x week Last use: 01/09/24 Do You Feel Safe in your Home?: Yes Lack of Transportation: No Lack of Food: Never True Current Housing: Decline to Answer Concerned About Future Housing: No Difficulty Paying Gas/Electric Bills: No Difficulty Paying for Meds: No Currently Unemployed: No Education: Don't Know Difficulty w/ Childcare or Family Care: No Living arrangements: homeless Spiritual care concerns: No Meds Home Medications and Allergies Home Medications Medication Instructions Recorded Confirmed Type No Home Medications 01/09/24 01/09/24 History Allergies Allergy/AdvReac Type Severity Reaction Status Date / Time turkey Allergy Hives Verified 11/10/23 01:07 Vital Signs Vital Signs - 24 hr 01/08/24 22:27 01/09/24 01:23 01/09/24 02:28 Temperature 98.5 F 98.6 F Pulse Rate 94 99 77 Respiratory Rate 20 15 18 Blood Pressure 148/94 H 142/88 H 127/84 Pulse Oximetry 100 97 99 Oxygen Delivery Room Air Exam Narrative: in bed Const: General: comfortable, no acute distress, well deve
[2024-01-09] MEDS: VANCOMYCIN 1,500 MG/NS 500 ML 1,500 MG/500 ML BAG 250 MG IVPB (02:51)
[2024-01-09] MEDS: ALPRAZolam (*CRX) 0.25 MG TABLET PO (03:09)
--- NOTE | 2024-01-09 05:37 | PC.NURSE ---
OVERLOCK HEMMER approached this RN after attempt to obtain vital signs, pt noted to have been engaging in inappropriate sexual behaviors. This RN went to room with witness to assess situation, pt noted to have decreased LOC, and more agitated than at initial assessment. provider was notified of acute change. security notified of inappropriate behavior, and reported to room. after assessment per security pt left AMA, provider was notified
== END 2024-01-09 05:25 | disposition left against medical advice (07) ==
LOC: ANHED 01-09 00:56 → ANH3MEDSUR 01-09 01:18
PROVIDERS: Admitting Provider Internal Medicine; Emergency Provider Physician Assistant; Visit Provider Internal Medicine
DX: L03.114 Cellulitis of left upper limb (principal); F15.10 Other stimulant abuse, uncomplicated; F11.10 Opioid abuse, uncomplicated; Z59.01 Sheltered homelessness; F17.210 Nicotine dependence, cigarettes, uncomplicated; Z23 Encounter for immunization
CPT/HCPCS: 10060; 36415; 80053; 80307; 83605; 85025; 85652; 86140; 87040; 90471; 90715; 96374; 96375; 99285; A9270; G0378; G0379; J2060; J3370

== ENCOUNTER 2024-01-30 14:56 | Emergency (ER) | payer OTHER, SELFPAY ==
[2024-01-30 15:42] VITALS: BP 136/87; PULSE 79; RESP 15; TEMP 36.5; O2SAT 98
--- NOTE | 2024-01-30 17:35 | ED_ITS ---
HPI - Recheck/Abnormal Lab/Rx General Chief Complaint: Recheck/Abnormal Lab/Rx Stated Complaint: lost antibiotics Time Seen by Provider: 01/30/24 17:28 Related Data Home Medications Medication Instructions Recorded Confirmed No Home Medications 01/09/24 01/09/24 Allergies Allergy/AdvReac Type Severity Reaction Status Date / Time turkey Allergy Hives Verified 11/10/23 01:07 [facility] Past Medical History Medical History History of endocarditis Hypertension IV drug abuse Mitral valve prolapse Surgical History Surgical History History of heart valve repair 2022 Family History Family History Other Family history non-contributory Social History Social History Smoking packs per day: 0.5 Smoking cigarettes per day: 10.0 Smoking status: Current every day smoker Tobacco type: cigarettes Second hand tobacco smoke exposure: Yes Alcohol intake: current Drinks per week: 12 Substance use: current Substance use type: marijuana, amphetamines and IV drugs Other substance usage details: fentanyl 2x day 2-3 pills, shoots up fentanyl and smokes meth 1x week Last use: 01/09/24 Do You Feel Safe in your Home?: Yes Lack of Transportation: No Lack of Food: Never True Current Housing: Decline to Answer Concerned About Future Housing: No Difficulty Paying Gas/Electric Bills: No Difficulty Paying for Meds: No Currently Unemployed: No Education: Don't Know Difficulty w/ Childcare or Family Care: No Living arrangements: homeless Spiritual care concerns: No Course Vital Signs Vital signs: Vital Signs Temperature 36.5 C 01/30/24 15:42 Pulse Rate 79 01/30/24 15:42 Respiratory Rate 15 01/30/24 15:42 Blood Pressure 136/87 01/30/24 15:42 Pulse Oximetry 98 01/30/24 15:42 Oxygen Delivery Room Air 01/30/24 15:42 Temperature 36.5 C 01/30/24 15:42 Pulse Rate 79 01/30/24 15:42 Respiratory Rate 15 01/30/24 15:42 Blood Pressure 136/87 01/30/24 15:42 Pulse Oximetry 98 01/30/24 15:42 Oxygen Delivery Room Air 01/30/24 15:42 Discharge Plan Discharge Prescriptions: No Action No Home Medications Follow-up/Referrals: PHYSICIAN,CRIMP SETTER [Primary Care Provider] -
--- NOTE | 2024-02-23 19:25 | ED.GENADULT ---
HPI - General Adult General Chief complaint: Recheck/Abnormal Lab/Rx Stated complaint: lost antibiotics Time Seen by Provider: 01/30/24 17:28 Source: patient Mode of arrival: ambulatory Limitations: no limitations History of Present Illness HPI narrative: PATIENT IS 38 YEARS OLD WHITE MALE CAME TO THE EMERGENCY ROOM REQUESTING ANTIBIOTIC. PATIENT WAS DIAGNOSED RECENTLY WITH INFECTION OF THE RIGHT LOWER LEG AFTER HAVING INSECT BITE. REPORTS SEND SOMEBODY STOLE HER ANTIBIOTIC WHEN SHE WAS SLEEPING. PATIENT IS HOMELESS. Related Data Allergies Allergy/AdvReac Type Severity Reaction Status Date / Time turkey Allergy Hives Verified 01/31/24 22:12 Review of Systems Review of Systems: All systems reviewed & are unremarkable except as noted in HPI and below PMFSH Past Medical History Medical History History of endocarditis Hypertension IV drug abuse Mitral valve prolapse Surgical History Surgical History History of heart valve repair 2022 Family History Family History Other Family history non-contributory Social History Social History Smoking packs per day: 0.5 Smoking cigarettes per day: 10.0 Smoking status: Current every day smoker Second hand tobacco smoke exposure: Yes Alcohol intake: current Drinks per week: 12 Substance use: current Substance use type: marijuana, amphetamines and IV drugs Other substance usage details: fentanyl 2x day 2-3 pills, shoots up fentanyl and smokes meth 1x week Last use: 01/09/24 Do You Feel Safe in your Home?: Yes Lack of Transportation: No Lack of Food: Never True Current Housing: Decline to Answer Concerned About Future Housing: No Difficulty Paying Gas/Electric Bills: No Difficulty Paying for Meds: No Currently Unemployed: No Education: Don't Know Difficulty w/ Childcare or Family Care: No Living arrangements: homeless Spiritual care concerns: No Exam Narrative: GENERAL APPEARANCE: WELL-DEVELOPED, WELL-NOURISHED SKIN: NORMAL COLOR HEAD: NORMOCEPHALIC, NONTRAUMATIC EYES: CLEAR CONJUNCTIVA ENT: OROPHARYNX NORMAL, EARS NORMAL, NOSE NORMAL NECK: SUPPLE, NONTENDER CHEST AND RESPIRATORY: AIRWAY PATENT, NO RESPIRATORY DISTRESS, NO ACCESSORY MUSCLE USE HEART: REGULAR RATE/RHYTHM ABDOMEN: SOFT, NONTENDER, NO ORGANOMEGALY, QUIET BOWEL SOUNDS VASCULAR: NORMAL PERIPHERAL PULSES, NORMAL CAPILLARY REFILL. MUSCULOSKELETAL: NORMAL RANGE OF MOTION, NONTENDER BACK, RIGHT LOWER LEG SHOWED WHAT LOOK LIKE INSECT BITE SURROUNDED BY SLIGHT ERYTHEMA 3 X 4 CM, NO DISCHARGE NEUROLOGIC: ALERT AND ORIENTED ?3, DEAF TEACHER IS NORMAL TESTED, NO GROSS MOTOR DEFICIT Course Vital Signs Vital signs: Vital Signs Temperature 36.5 C 01/30/24 15:42 Pulse Rate 79 01/30/24 15:42 Respiratory Rate 15 01/30/24 15:42 Blood Pressure 136/87 01/30/24 15:42 Pulse Oximetry 98 01/30/24 15:42 Oxygen Delivery Room Air 01/30/24 15:42 Temperature 36.5 C 01/30/24 15:42 Pulse Rate 79 01/30/24 15:42 Respiratory Rate 15 01/30/24 15:42 Blood Pressure 136/87 01/30/24 15:42 Pulse Oximetry 98 01/30/24 15:42 Oxygen Delivery Room Air 01/30/24 15:42 Medical Decision Making Vital Signs Vital Signs: Vital Signs Temperature 36.5 C 01/30/24 15:42 Pulse Rate 79 01/30/24 15:42 Respiratory Rate 15 01/30/24 15:42 Blood Pressure 136/87 01/30/24 15:42 Pulse Oximetry 98 01/30/24 15:42 Oxygen Delivery Room Air 01/30/24 15:42 Te
== END 2024-01-30 19:00 | disposition left against medical advice (07) ==
PROVIDERS: Emergency Provider Emergency Medicine
DX: S80.861D Insect bite (nonvenomous), right lower leg, subsequent encounter (principal); Z59.00 Homelessness unspecified; I10 Essential (primary) hypertension; I34.1 Nonrheumatic mitral (valve) prolapse; F17.210 Nicotine dependence, cigarettes, uncomplicated; W57.XXXD Bitten or stung by nonvenomous insect and other nonvenomous arthropods, subsequent encounter
CPT/HCPCS: 99281

== ENCOUNTER 2024-01-31 22:06 | Observation (INO) | payer OTHER, SELFPAY ==
--- NOTE | ~2024-01-31 | XR_ITS ---
XR chest 1V portable DATE: 02/01/2024 01:21 INDICATION: Intermittent chest pain TECHNIQUE: Portable upright AP chest on 02/01/2024 at 0113 hours COMPARISON: 11/10/2023 portable AP chest FINDINGS: Postoperative change of the chest is again noted. Normal heart size. No hilar or mediastina l enlargement. No pulmonary infiltrate or consolidation, pleural effusion or pulmonary vascular congestion or pneumo thorax. IMPRESSION: Postoperative chest; no active cardiopulmonary disease Reviewed, dictated and finalized at location A.
[2024-01-31 22:08] VITALS: BP 139/86; PULSE 84; RESP 20; TEMP 36.3; O2SAT 97
[2024-02-01] VITALS (16 sets, daily range): BP systolic 126–141; BP diastolic 82–100; PULSE 54–65; RESP 9–20; TEMP 35.7–36.4; O2SAT 96–100; BMI 21.3
--- NOTE | 2024-02-01 00:55 | ECG_ITS ---
Test Date: 2024-02-01 00:59:42 Measurements Intervals [place] Rate: 61 P: 62 AL: 146 QRS: 39 QRSD: 106 T: 47 QT: 465 QTc: 469 Interpretive Statements SINUS RHYTHM NORMAL ELECTROCARDIOGRAM No previous ECG available for comparison Electronically Signed On 02-01-2024 08:04:43 CDT by Sanchez Baldwin M.D.
--- NOTE | 2024-02-01 00:56 | ED.SKABFB ---
HPI - Skin/Abscess/Foreign Bdy General Chief complaint: Skin/Abscess/Foreign Body Stated complaint: RIGHT leg infection x1 month Time Seen by Provider: 02/01/24 00:40 History of Present Illness HPI narrative: 38-year-old male with a history of IVDU, polysubstance abuse, endocarditis, MVP presents to the ED for generalized weakness and fatigue. patient is very somnolent on exam and is a poor historian. States he has been feeling weak and unwell for quite a while. He states he feels like he did when he had endocarditis previously. States he has intermittent chest pain but is unable to did not identify any aggravating or alleviating factors. This is also been going on for quite a while. He denies shortness of breath, cough or congestion, abdominal pain. He is reporting some nausea and subjective fevers. He denies drug use other than marijuana and states he drinks 1 beer a week. He denies dysuria or hematuria. The following history is obtained by patient's son and X at bedside. States the patient has been increasingly paranoid for the past few months. States that the patient will call them while at work and report the people are out to get him. States they know he uses heroin and believes it is IV because The son found a needle in his bag. Related Data Home Medications Medication Instructions Recorded Confirmed No Home Medications 01/09/24 01/09/24 Allergies Allergy/AdvReac Type Severity Reaction Status Date / Time turkey Allergy Hives Verified 01/31/24 22:12 Review of Systems Review of Systems: CONSTITUTIONAL: See HPI EYES: Denies visual changes, redness, or discharge. ENT: Denies rhinorrhea, congestion, sore throat, or otalgia. CARDIOVASCULAR: See HPI RESPIRATORY: Denies cough or dyspnea. GASTROINTESTINAL: Denies abdominal pain, nausea, vomiting, or diarrhea. GENITOURINARY: Denies dysuria or hematuria. SKIN: Denies rash or itching. MUSCULOSKELETAL: Denies back pain, joint pain, or myalgia. NEUROLOGIC: Denies headache, numbness, or weakness. PSYCHIATRIC: Denies anxiety or depression. [facility] Past Medical History Medical History History of endocarditis Hypertension IV drug abuse Mitral valve prolapse Surgical History Surgical History History of heart valve repair 2022 Family History Family History Other Family history non-contributory Social History Social History Smoking packs per day: 0.5 Smoking cigarettes per day: 10.0 Smoking status: Current every day smoker Tobacco type: cigarettes Second hand tobacco smoke exposure: Yes Alcohol intake: current Drinks per week: 12 Substance use: current Substance use type: marijuana, amphetamines and IV drugs Other substance usage details: fentanyl 2x day 2-3 pills, shoots up fentanyl and smokes meth 1x week Last use: 01/09/24 Do You Feel Safe in your Home?: Yes Lack of Transportation: No Lack of Food: Never True Current Housing: Decline to Answer Concerned About Future Housing: No Difficulty Paying Gas/Electric Bills: No Difficulty Paying for Meds: No Currently Unemployed: No Education: Don't Know Difficulty w/ Childcare or Family Care: No Living arrangements: homeless Spiritual care concerns: No Exam Narrative: GENERAL: Somnolent, arousable with verbal stimuli. Appears under the influence. Malodorous and poorly kept HEAD: Normocephalic, atraumatic. EYES: PERRLA and EOMI. ENT: Nares clear, no rhinorrhea or epistaxis. Mucous membranes moist. NECK: Supple. CHEST: Clear to auscultation. No respiratory distress. HEART: Regular rate and rhythm. No murmur heard. Normal peripheral pulses. ABDOMEN: Soft, nontender, nondistended, normal active bowel sounds. EXTREMITIES: Norm
[2024-02-01 01:17] LABS: Basophils Percent Auto 0.3 % (0.2-1.2); Eosinophils Absolute Auto 0.2 K/mm3 (0-0.3); Eosinophils Percent Auto 2.7 % (0-4.4); Hematocrit 40.6 % (42.0-52.0); Hemoglobin 13.3 g/dL (14.0-18.0); Immature Granulocyte Absolute 0.01 K/mm3 (0.00-0.031); Immature Granulocyte Percent A 0.2 % (0-0.5); Immature Platelet Fraction Pct 4.1 % (0.9-11.2); Lymphocytes Absolute Auto 2.36 K/mm3 (0.9-3.2); Lymphocytes Percent Auto 39.9 % (18.3-44.2); Mean Corpuscular HGB Conc 32.8 g/dl (32-36); Mean Corpuscular Hemoglobin 28.2 pg (26-34); Mean Platelet Volume 10.6 fl (7.4-10.4); Monocytes Absolute Auto 0.3 K/mm3 (0.1-0.6); Monocytes Percent Auto 5.4 % (2.6-8.5); Neutrophils Absolute Auto 3.1 K/mm3 (1.3-6.7); Neutrophils Percent Auto 51.5 % (45.5-73.1); Platelet Count Result 137 k/mm3 (150-375); Red Blood Count 4.72 M/mm3 (4.6-6.20); Red Cell Distribution Width 13.9 % (11.5-14.5); White Blood Count 5.9 K/mm3 (4.5-10.0)
[2024-02-01 01:27] LABS: INR 1.1; Prothrombin Time 14.4 Seconds (11.1-14.7)
[2024-02-01 01:28] LABS: Partial Thromboplastin Time 30.8 Seconds (22.3-36.8)
[2024-02-01 01:29] LABS: Alanine Aminotransferase 19 U/L (6-50); Albumin Level 4.3 g/dL (3.5-5.1); Alkaline Phosphatase 94 U/L (38-126); Anion Gap 6 mmol/L (4-12); Aspartate Amino Transferase 24 U/L (17-59); Bilirubin,Total 1.3 mg/dL (0.2-1.3); Blood Urea Nitrogen 17 mg/dL (9-20); CRP 1.3 mg/dL (<1.0); Calcium 8.9 mg/dL (8.4-10.2); Carbon Dioxide 28 mmol/L (22-30); Chloride 106 mmol/L (98-107); Estimated CRCL calculation 109 ml/min; Estimated Glomerular Filt Rate > 60; Glucose 99 mg/dL (65-110); Lipase 49 U/L (23-300); Potassium 3.7 mmol/L (3.4-5.0); Sodium 140 mmol/L (137-145)
[2024-02-01 01:34] LABS: NT Pro B Type Natriuretic Pept 323 pg/mL (19.9-100)
[2024-02-01 01:38] LABS: Troponin I < 0.012 ng/mL (0.000-0.034)
[2024-02-01 01:53] LABS: Influenza A QL RT-PCR Negative (Negative); Influenza B QL RT-PCR Negative (Negative); RSV RNA, RT-PCR Negative (Negative); SARS-CoV-2 RNA PCR Negative (Negative)
[2024-02-01 01:55] LABS: Ethanol < 10 mg/dL (<10)
[2024-02-01 01:57] LABS: Appearance Urine Clear (Clear); Bacteria Urine None Seen /hpf; Bilirubin Urine 1+ (Negative); Blood Urine Negative (Negative); Color Urine Dark Yellow (Yellow); Glucose Urine UA Negative (Negative); Ketones Urine Negative (Negative); Leukocyte Esterase Ur Negative LEU/UL (Negative); Need Manual Microscopic Reviewed; Nitrate Urine Negative (Negative); Protein Urine Trace mg/dL (Negative); RBC Urine 0-2 /hpf (0-2); Squamous Epithelial Cell Urine Occasional /hpf (Few); WBC Urine 0-5 /hpf (0-3); pH Urine 5.5 (5.0-9.0)
[2024-02-01 02:01] LABS: Specific Grav Ur 1.038 (1.001-1.035)
[2024-02-01 02:03] LABS: Barbiturate Screen Urine Negative (Negative); Benzodiazepines Screen Urine Negative (Negative)
[2024-02-01 02:07] LABS: Cannabinoid Screen Urine Positive (Negative); Cocaine Screen Urine Negative (Negative); Methadone Screen Urine Negative (Negative); Opiate Screen Urine Negative (Negative); Phencyclidine Screen Urine Negative (Negative)
[2024-02-01 02:18] LABS: Add Urine Microscopic? YES
[2024-02-01 02:35] LABS: Erythrocyte Sedimentation Rate 18 mm/hr (0-20)
[2024-02-01 02:48] LABS: Amphetamine Screen Urine Positive (Negative)
[2024-02-01 03:53] LABS: Procalcitonin 4.8 ng/mL
[2024-02-01 04:56] LABS: Creatine Kinase 46 U/L (55-170)
[2024-02-01 05:06] LABS: Troponin I 0.014 ng/mL (0.000-0.034)
[2024-02-01] MEDS: VANCOMYCIN 1,500 MG/NS 500 ML 1,500 MG/500 ML BAG 250 MG IVPB (05:37)
--- NOTE | 2024-02-01 06:05 | ADMGEN ---
This patient, Sotero Ruby, was admitted to 3 Med Surg Room 324-01. Patient/family oriented to hospital policies and general routines including ID bracelet, bed and alarms, visiting hours, pain management, procedures, bathroom and other care routines, personal items, smoking policy, room service/diet, and visiting hours. Information on how to activate the Rapid Response Team has been discussed. Patient/Family are encouraged to report perceived risks to care and to ask questions if they do not understand what they are told or what they should do.
[2024-02-01 07:26] LABS: Troponin I < 0.012 ng/mL (0.000-0.034)
[2024-02-01] MEDS: SODIUM CHLORIDE 0.9% IV 1,000 ML 999 ML IV CONT ×2 (08:15→08:16)
--- NOTE | 2024-02-01 09:46 | PM.IMHP ---
H&P: HPI History of Present Illness Date/Time: 02/01/24 09:46 Chief Complaint: generalized weakness, fatigue Narrative: 38-year-old male with PMH of IVDU, polysubstance abuse, endocarditis, MVP presents to the ED for generalized weakness and fatigue. patient was very somnolent on exam in ed and is a poor historian. He had been feeling weak and unwell for quite a while. He had a h/o endocarditis previously. He had an intermittent chest pain but is unable to did not identify any aggravating or alleviating factors. This is also been going on for quite a while. He denies shortness of breath, cough or congestion, abdominal pain. He is reporting some nausea and subjective fevers. He denies drug use other than marijuana and states he drinks 1 beer a week. He denies dysuria or hematuria. Per ed note- son was present at the bedside. Per son, pt had been increasingly paranoid for the past few months. States that the patient will call them while at work and report the people are out to get him. States they know he uses heroin and believes it is IV because they found a needle in his bag. Substance use type: marijuana, amphetamines and IV drugs Other substance usage details: fentanyl 2x day 2-3 pills, shoots up fentanyl and smokes meth 1x week reports 1 alcoholic drinks per week. smoker Work up in ED: CBC without leukocytosis. . Hemoglobin wnl. CMP unremarkable. ESR normal at 18. CRP elevated at 1.3. UA with elevated specific gravity but no UTI. UDS positive for amphetamines and cannabinoids. COVID, flu RSV completed and are negative. Lactic acid normal. EKG in ed: sinus rhythm with prolonged QTC interval of 469, no ischemic changes. Troponin undetectable. Chest x-ray unremarkable. At this point-no obvious signs of endocarditis. There is an infected lesion to the left AC-plan of care was discussed with hospitalist and pt was admitted for iv antibiotics- [facility] 01/31- pt is seen and examined at the bedside. unable to get much information form pt- he is drowsy- requiring a lot of prompting. When awake- he is appropriate. Pt reports that he does want to go to rehab and has resources- apparently he was here last admission- and was given lot so of information on rehab but never went. He reports that he was given po antibiotics for his sores from needles injections but lost the script and never filled that. Exam is pretty unremarkable at this point. Review of Systems Constitutional: Constitutional: Denies chills Cardiovascular: Cardiovascular: Denies chest pain and Denies leg edema Respiratory: Respiratory: Denies chest congestion, Denies cough and Denies dyspnea Gastrointestinal: Gastrointestinal: Denies abdominal pain and Denies constipation Musculoskeletal: Musculoskeletal: Reports back pain and Reports myalgias Neurologic: Comments: drowsy PMFSH Past Medical History Medical History History of endocarditis Hypertension IV drug abuse Mitral valve prolapse Surgical History Surgical History History of heart valve repair 2022 Family History Family History Other Family history non-contributory Social History Social History Smoking packs per day: 0.5 Smoking cigarettes per day: 10.0 Smoking status: Current every day smoker Second hand tobacco smoke exposure: Yes Alcohol intake: current Drinks per week: 12 Substance use: current Substance use type: marijuana, amphetamines and IV drugs Other substance usage details: fentanyl 2x day 2-3 pills, shoots up fentanyl and smokes meth 1x week Last use: 01/09/24 Do You Feel Safe in your Home?: Yes Lack of Transportation: No Lack of Food: Never True Current Housing: Decline to Answer Concerned About Future Housing: No Diffic
--- NOTE | 2024-02-01 18:24 | PC.NURSE ---
Addendum entered by Shilpa Charles RN 02/01/24 18:28: IV access removed at 0915. Original Note: This RN removed patient's IV access. made aware. ABX to be changed to PO, first dose tonight.
[2024-02-01] MEDS: NICOTINE (*PBKC) 21 MG PATCH 1 PATCH TRANSDERM (18:59)
[2024-02-01] MEDS: CEPHALEXIN 500 MG CAPSULE PO (20:36)
[2024-02-01] MEDS: KETOROLAC (*BKC) 60 MG/2 ML VIAL IM (20:36)
[2024-02-02] VITALS: PULSE 64
[2024-02-02 04:00] VITALS: PULSE 58
[2024-02-02 06:00] VITALS: BP 159/85; PULSE 58; RESP 20; TEMP 36.5; O2SAT 98
[2024-02-02 06:27] LABS: Estimated CRCL calculation 139 ml/min; Estimated Glomerular Filt Rate > 60
[2024-02-02 08:00] VITALS: PULSE 61
[2024-02-02] MEDS: CELECOXIB 200 MG CAPSULE PO (08:07)
[2024-02-02 08:08] LABS: Barbiturate Screen Urine Negative (Negative); Benzodiazepines Screen Urine Negative (Negative)
[2024-02-02 08:09] LABS: Cocaine Screen Urine Negative (Negative); Methadone Screen Urine Negative (Negative); Opiate Screen Urine Negative (Negative); Phencyclidine Screen Urine Negative (Negative)
[2024-02-02 08:10] LABS: Cannabinoid Screen Urine Positive (Negative)
--- NOTE | 2024-02-02 08:15 | PC.NURSE ---
Patient upset that he was not given anything for pain. Provider call and pain meds ordered. Requested to speak to charge nurse. Charge nurse notified.
[2024-02-02 08:18] LABS: Amphetamine Screen Urine Positive (Negative)
--- NOTE | 2024-02-02 08:31 | PM.DS ---
DS: Admitting Diagnosis Discharge Date 02/01 Admitting Diagnosis weakness DS: Discharge Diagnosis Discharge Diagnosis (1) Cellulitis: Qualifiers: Laterality: left Site of cellulitis: extremity Site of cellulitis of extremity: upper extremity Qualified Code(s): L03.114 - Cellulitis of left upper limb Code(s): L03.90 - Cellulitis, unspecified Status: Acute Assessment and Plan: -small-dime size open area to lt AC-no drainage slight erythema -few spots to BLE from reported drug injections-dried area - keep areas clean and dry - was started on vanc- but no longer has IV- so will switch to PO (2) Polysubstance abuse: Code(s): F19.10 - Other psychoactive substance abuse, uncomplicated Status: Acute Assessment and Plan: - resources for rehab provided - monitor for withdrawal (3) Tobacco dependence: Code(s): F17.200 - Nicotine dependence, unspecified, uncomplicated Status: Acute (4) IVDU (intravenous drug user): Code(s): F19.90 - Other psychoactive substance use, unspecified, uncomplicated Status: Acute Assessment and Plan: -monitor for withdrawal Plan final dx: polysubstance abuse, cellulitis-resolved DS: Summary Hospital Course Hospital Course: Narrative: 38-year-old male with PMH of IVDU, polysubstance abuse, endocarditis, MVP presents to the ED for generalized weakness and fatigue. patient was very somnolent on exam in ed and is a poor historian. He had been feeling weak and unwell for quite a while. He had a h/o endocarditis previously. He had an intermittent chest pain but is unable to did not identify any aggravating or alleviating factors. This is also been going on for quite a while. He denies shortness of breath, cough or congestion, abdominal pain. He is reporting some nausea and subjective fevers. He denies drug use other than marijuana and states he drinks 1 beer a week. He denies dysuria or hematuria. Per ed note- son was present at the bedside. Per son, pt had been increasingly paranoid for the past few months. States that the patient will call them while at work and report the people are out to get him. States they know he uses heroin and believes it is IV because they found a needle in his bag. Substance use type: marijuana, amphetamines and IV drugs Other substance usage details: fentanyl 2x day 2-3 pills, shoots up fentanyl and smokes meth 1x week reports 1 alcoholic drinks per week. smoker Work up in ED: CBC without leukocytosis. . Hemoglobin wnl. CMP unremarkable. ESR normal at 18. CRP elevated at 1.3. UA with elevated specific gravity but no UTI. UDS positive for amphetamines and cannabinoids. COVID, flu RSV completed and are negative. Lactic acid normal. EKG in ed: sinus rhythm with prolonged QTC interval of 469, no ischemic changes. Troponin undetectable. Chest x-ray unremarkable. At this point-no obvious signs of endocarditis. There is an infected lesion to the left AC-plan of care was discussed with hospitalist and pt was admitted for iv antibiotics- vanc 01/31- pt is seen and examined at the bedside. unable to get much information form pt- he is drowsy- requiring a lot of prompting. When awake- he is appropriate. Pt reports that he does want to go to rehab and has resources- apparently he was here last admission- and was given lot so of information on rehab but never went. He reports that he was given po antibiotics for his sores from needles injections but lost the script and never filled that. Exam is pretty unremarkable at this point. 02/01- no erythema noted to lt ac- dime size area -could be just some irritation from IV drug use. I will send him home with antibiotics just to finish course- but his main priority needs to be rehab and utilizing resources provided per care coordination. Status at Discharge Functional status at discharge: independent ambulation Overall status at discharge: patient is back to [facility]
[2024-02-02] MEDS: CEPHALEXIN 500 MG CAPSULE PO (08:36)
[2024-02-02] MEDS: ACETAMINOPHEN 325 MG TABLET 650 MG PO (08:37)
[2024-02-03 18:18] LABS: Red Blood Cell Folate 549 ng/mL RBC (>280)
== END 2024-02-02 08:40 | disposition home or self-care (01) ==
LOC: ANHED 02-01 03:38 → ANH3MEDSUR 02-01 04:53
PROVIDERS: Nurse Practitioner; Admitting Provider Internal Medicine; Emergency Provider Physician Assistant; Visit Provider Internal Medicine
DX: L03.114 Cellulitis of left upper limb (principal); F19.10 Other psychoactive substance abuse, uncomplicated; R07.89 Other chest pain; R53.1 Weakness; I10 Essential (primary) hypertension; F17.210 Nicotine dependence, cigarettes, uncomplicated; F12.90 Cannabis use, unspecified, uncomplicated; Z86.79 Personal history of other diseases of the circulatory system; Z20.822 Contact with and (suspected) exposure to COVID-19
CPT/HCPCS: 36415; 71045; 80053; 80307; 81001; 82550; 82565; 82607; 82747; 83605; 83690; 83880; 84145; 84443; 84484; 85025; 85055; 85610; 85652; 85730; 86140; 87040; 87637; 93005; 96365; 96366; 96372; 99285; A9270; G0378; G0379; J1885; J3370; J7030